=== PATIENT | male | born 1945 | race Caucasian/White ===

== ENCOUNTER 2018-01-26 09:10 | Inpatient (IN) | payer MEDICARE ==
[2018-01-26 09:40] LABS: #Basophils 0.1 thou/uL (0.0-0.2); #Lymphocytes 1.3 thou/uL (1.20-3.40); #Monocytes 0.4 thou/uL (0.11-0.59); %Basophils 0.6 % (0.0-1.0); %Eosinophils 0.3 % (0.0-10.0); %Lymphocytes 13.1 % (21.0-51.0); %Monocytes 4.1 % (0.0-10.0); Hemoglobin 13.6 g/dL (14.0-18.0); Mean Corpuscular HGB CONC 33.3 g/dL (32.0-36.0); Mean Platelet Volume 7.1 fL (7.4-10.4); Platelet Count 283 thou/uL (130-400); RBC Distribution Width 12.3 % (11.5-14.5); Red Blood Cell (RBC) Count 4.71 mill/uL (4.70-6.10); White Blood Cell (WBC) Count 9.8 thou/uL (4.8-10.8)
[2018-01-26] MEDS ORDERED: Ondansetron HCl/PF 4 MG/2 ML Vial ONE (09:40)
[2018-01-26 09:56] LABS: Bilirubin Negative (Negative); Blood, Urine Negative (Negative); Clarity CLEAR (Clear); Glucose, Urine (Dipstick) Negative (Negative); Leukocyte Negative (Negative); Nitrite Negative (Negative); Protein, Urine (Dipstick) Negative (Neg-Trace); Specific Gravity, Urine 1.023 (1.002-1.036); Urobilinogen 0.2 mg/dL (0.2-1.0); pH, Urine 5.5 (5.0-9.0)
[2018-01-26 10:05] LABS: ALT (SGPT) 12 U/L (8-55); AST (SGOT) 20 U/L (5-34); Albumin 4.1 g/dL (3.4-4.8); Alkaline Phosphatase 79 U/L (40-150); Anion Gap 14 mmol/L (10-20); BUN (Urea Nitrogen) 12 mg/dL (8.4-25.7); Bilirubin, Total 0.5 mg/dL (0.2-1.2); Calc. Creatinine Clearance 0 mL/min (70-130); Carbon Dioxide 24 mmol/L (23-31); Chloride 104 mmol/L (98-107); Estimated GFR-MDRD 82; Globulin 3.5 g/dL (2.4-3.5); Glucose 114 mg/dL (83-110); Lipase 32 U/L (8-78); Potassium 4.3 mmol/L (3.5-5.1); Protein, Total 7.6 g/dL (5.8-8.1); Sodium 138 mmol/L (136-145)
[2018-01-26 10:06] LABS: Troponin I Less than 0.010 ng/mL (< 0.028)
--- NOTE | 2018-01-26 11:23 | CT ---
CT ABDOMEN AND PELVIS WITH IV CONTRAST: Date: 01/26/18 HISTORY: Right lower quadrant abdominal pain and vomiting. FINDINGS: The lung bases are unremarkable. The liver, spleen, pancreas, adrenal glands, and left kidney are nor mal. There is a cortical cyst arising from the right kidney. No calcified gallstones are seen. No free air or lymphadenopathy is noted. There is a small amount of free fluid in the pelvis. The pro state is enlarged. There are prominent, but nondilated, loops of small bowel in the left hemiabdomen with mild surrounding inflammatory changes. There is fecal material in the colon. A small hiatal viviane ia is present. There is mid colonic diverticulosis. There are vascular calcifications without evidence of aneurysmal dilatation of the abdominal aorta. T here are degenerative changes in the spine. IMPRESSION: 1. Findings are suspicious for enteritis. Early or developing small bowel obstruction cannot be excl uded. 2. Right renal cyst. 3. Small amount of free fluid in the pelvis. 4. Small hiatal hernia. POS: [facility]
[2018-01-26] MEDS ORDERED: Benzocaine 20% Spray 60 ML CAN ONE (11:51)
[2018-01-26] MEDS ORDERED: ISOVUE-370 76%-LOCM 1 ML ONE (13:02)
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
[2018-01-26] MEDS ORDERED: Dextrose 5 % And 0.9 % NaCl 1,000 ML IV SCH (15:15)
[2018-01-26] MEDS ORDERED: Artificial Tears 18 DROP/0.9 ML EA EYE PRN (15:18)
[2018-01-26] MEDS ORDERED: Acetaminophen 650 MG Suppository PR PRN (15:18)
[2018-01-26] MEDS ORDERED: Eucerin (Mineral Oil/Petrolatum,White) 30 gm Jar TOP PRN (15:18)
[2018-01-26] MEDS ORDERED: Sodium Chloride 0.65% Nasal 44 ML BOT EA NARE PRN (15:18)
[2018-01-26] MEDS ORDERED: Bisacodyl 10 MG SUPP PR PRN (15:18)
[2018-01-26] MEDS ORDERED: Labetalol HCl 100 MG/20 ML VIAL SLOW IVP PRN (15:18)
[2018-01-26] MEDS ORDERED: Chloraseptic Spray 180 ml Bottle PO PRN (15:18)
[2018-01-26] MEDS: Ondansetron HCl/PF 4 MG/2 ML Vial IVP PRN (15:41)
[2018-01-26] MEDS: hydrALAZINE 20 MG/ML VIAL SLOW IVP PRN (15:42)
[2018-01-26] MEDS: Sodium Chloride 0.9% 1,000 ML IV SCH (15:45)
[2018-01-26] MEDS: metroNIDAZOLE 500 MG in Premix Bag 1 BAG IVPB SCH (17:07)
[2018-01-26] MEDS ORDERED: Communication Order-Pharmacy FS SCH (17:45)
[2018-01-26] MEDS ORDERED: fentaNYL Citrate/PF 2,000 MCG in Sodium Chloride 0.9% 60 ML IV PRN (17:45)
[2018-01-26] MEDS ORDERED: Ondansetron HCl/PF 4 MG/2 ML Vial IVP PRN (17:45)
[2018-01-26] MEDS ORDERED: diphenhydrAMINE 50 MG/ML VIAL IM PRN (17:45)
[2018-01-26] MEDS ORDERED: Promethazine HCl 25 MG/ML VIAL IM PRN (17:45)
[2018-01-26] MEDS ORDERED: diphenhydrAMINE 25 MG CAP PO PRN (17:45)
[2018-01-26] MEDS ORDERED: Naloxone HCl 0.4 mg/ml Vial IV PRN (17:45)
[2018-01-26] MEDS ORDERED: diphenhydrAMINE 50 MG/ML VIAL IVP PRN (17:45)
[2018-01-26] MEDS ORDERED: Zolpidem Tartrate 5 MG TAB PO PRN (17:45)
[2018-01-26] MEDS: Pantoprazole 40 MG VIAL IVP SCH (20:12)
[2018-01-27] MEDS: Sodium Chloride 0.9% 1,000 ML IV SCH ×3 (01:50→20:40)
[2018-01-27] MEDS: metroNIDAZOLE 500 MG in Premix Bag 1 BAG IVPB SCH (02:06)
[2018-01-27 05:07] LABS: Lactic Acid 8.5 mmol/L (0.5-2.2)
[2018-01-27 05:08] LABS: Anion Gap 23 mmol/L (10-20); BUN (Urea Nitrogen) 22 mg/dL (8.4-25.7); Calc. Creatinine Clearance 21 mL/min (70-130); Calcium 8.3 mg/dL (7.8-10.44); Carbon Dioxide 13 mmol/L (23-31); Chloride 105 mmol/L (98-107); Estimated GFR-MDRD 26; Glucose 275 mg/dL (83-110); Magnesium 1.9 mg/dL (1.6-2.6); Phosphorus 6.4 mg/dL (2.3-4.7); Potassium 5.4 mmol/L (3.5-5.1); Sodium 136 mmol/L (136-145)
[2018-01-27 05:24] LABS: Band 11 % (5-11); Eosinophils 1 % (0-10); Hemoglobin 18.3 g/dL (14.0-18.0); Lymphocytes 5 % (21-51); MDiff Complete? YES; Mean Corpuscular HGB CONC 31.9 g/dL (32.0-36.0); Mean Corpuscular Hemoglobin 28.5 pg (27.0-31.0); Mean Corpuscular Volume 89.2 fL (78.0-98.0); Mean Platelet Volume 7.8 fL (7.4-10.4); Metamyelocyte 1 % (0-0); Monocytes 7 % (0-10); Neutrophil 75 % (42-75); PLT Morphology Comment Appears Increased; Platelet Count 444 thou/uL (130-400); RBC Morphology Normal; Red Blood Cell (RBC) Count 6.43 mill/uL (4.70-6.10); White Blood Cell (WBC) Count 28.8 thou/uL (4.8-10.8)
--- NOTE | 2018-01-27 05:41 | PDOC.EVN ---
Event Note - Event Note Event Note: called initially for abnormal lab results pt with "hardness" to the abdomen and c/o feeling uncomfortable issues with hypotension entire evening UOP 100cc with 380cc on bladder scan residual exam: dec bowel sounds no tenderness to palpation but pt on fentanyl IV tense abdominal wall to palpation labs reviewed: new leukocytosis, MAVERICK, elev lactic acid plan: concern for sepsis escalate abx to piptaz + vanc (d'c levaquin, metronidazole) repeat XR abd stat blood cultures, urine cultures NGT c/s nephrology will need repeat lactic acid
[2018-01-27] MEDS: Piperacillin/Tazobactam 2.25 GM in Sodium Chloride 0.9% 100 ML IVPB SCH ×3 (06:35→18:13)
--- NOTE | 2018-01-27 07:54 | RAD ---
SUPINE ABDOMEN 1 VIEW: HISTORY: A 72-year-old male with a history of abdominal pain. FINDINGS: There appears to be at least 1 air-filled loop of small bowel as well as some increased opacity in th e left mid lateral abdomen which could represent minimally dilated fluid-filled loops of bowel. Very little colon gas is seen. Findings are certainly concerning for a potential high-grade partial smal l bowel obstruction. NG tube tip is in the stomach with the side hole at the GE junction level. Thi s should probably be advanced at least 6-7 cm for more optimal positioning within the stomach. IMPRESSION: Evidence for persistent small bowel obstruction with very little colon gas. NG Tube tip is in the st omach with the side hole at the GE junction region and should probably be advanced to more completely enter the stomach. POS: SHERICE
[2018-01-27] MEDS ORDERED: Vancomycin HCl 1.25 GM in Sodium Chloride 0.9% 250 ML 250 ML IVPB SCH (08:00)
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
[2018-01-27] MEDS ORDERED: Albumin 5% 500 ML ONE ×2 (10:03→11:11)
[2018-01-27] MEDS ORDERED: Phenylephrine HCL 10 MG/ML VIAL ONE (10:03)
[2018-01-27] MEDS ORDERED: Fentanyl 100 MCG/2 ML VIAL ONE ×2 (10:03→12:35)
[2018-01-27] MEDS ORDERED: Ketamine 50 MG/ML VIAL ONE (10:14)
[2018-01-27] MEDS ORDERED: Midazolam HCl 2 mg/2 ml Vial ONE (10:23)
[2018-01-27] MEDS ORDERED: Insulin Regular 300 UNITS/3 ML VIAL ONE (10:35)
[2018-01-27] MEDS ORDERED: Sodium Bicarb 50 MEQ/50 ML Abboject 8.4% SYRINGE ONE (10:54)
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
[2018-01-27] MEDS ORDERED: SUGAMMADEX SODIUM 500 MG/5 ML VIAL ONE (11:51)
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
--- NOTE | 2018-01-27 12:33 | OP ---
DATE OF PROCEDURE: 01/27/2018 PREOPERATIVE DIAGNOSES: Small-bowel obstruction and ischemic volvulus midgut. POSTOPERATIVE DIAGNOSES: Small-bowel obstruction and ischemic volvulus midgut. PROCEDURE: Exploratory laparotomy, lysis of adhesion and untwist of volvulus. SURGEON: Reynaldo Russ M.D. ANESTHESIA: General. ESTIMATED BLOOD LOSS: Minimal. COMPLICATIONS: None. SPECIMEN: None. FINDINGS: The mid small bowel appears with end-ischemia type changes on entrance into the abdominal cavity. Upon untwisting and lysing the adhesion causing twist, the intestine did improve to the poin t where none was resected. TECHNIQUE: The patient was taken to the operating room supine in the operating table. After general anesthetic was obtained, Dr. Andres placed Kimble with scope guidance. His abdomen were shaved, prep ped, and draped in a sterile fashion. Midline incision is made. Cautery dissected down into the abd ominal cavity. Some posterior abdominal wall adhesions were taken down. The small bowel appears isc hemic. It is able to be eviscerated. There was a twist caused by a single adhesion that was cut unt wisting the small intestine, 10-15 minutes, the small bowel appeared to be viable. There were couple patchy areas of purplish change; however, most of the near end-ischemia type changes had resolved. The small bowel was placed back into the abdominal cavity in its proper orientation. The abdomen was irrigated and suctioned out. Seprafilm was placed. The midline fascia closed using PDS from the to p and the bottom and tied in the middle. Subcutaneous tissues are irrigated and the skin was closed using betty. The patient is taken to the recovery room in stable condition. All instrument counts , needle counts, lap counts are correct.
[2018-01-27 14:04] LABS: Lactic Acid 2.1 mmol/L (0.5-2.2)
[2018-01-27] MEDS ORDERED: Succinylcholine Chloride 20 MG/ML 10 ml SYRINGE FS ONE (14:44)
[2018-01-27] MEDS ORDERED: Glycopyrrolate 0.2 MG/ML 5 ML SYRINGE ONE (14:44)
[2018-01-27] MEDS ORDERED: Lidocaine 1% PF 5 ML VIAL ONE (14:44)
[2018-01-27] MEDS ORDERED: PROPOFOL 200 MG/20 ML VIAL ONE (14:44)
[2018-01-27] MEDS: Acetaminophen 1,000 MG in Premix Bag 1 BAG IVPB PRN (16:01)
--- NOTE | 2018-01-27 21:03 | PDOC.PN ---
- Subjective Encounter Start Date: 01/27/18 Encounter Start Time: 08:45 Patient seen and examined for Sepsis/ Bowel obstruction. Events noted. Abd pain improving. Some Nausea. - Objective Resuscitation Status: Resuscitation Status FULL:Full Resuscitation MAR Reviewed: Yes Vital Signs & Weight: Vital Signs (12 hours) Temp Pulse Resp BP Pulse Ox 01/27/18 19:29 97.9 F 104 H 16 149/66 H 100 01/27/18 16:31 98.3 F 109 H 20 154/69 H 95 Weight Admit Weight 125 lb 2 oz Weight 128 lb 9.6 oz I&O: 01/26/18 01/27/18 01/28/18 06:59 06:59 06:59 Intake Total 300 1950 Output Total 450 525 Balance -150 1425 Result Diagrams: 01/27/18 04:56 01/27/18 04:09 Additional Labs: Accuchecks 01/27/18 11:54 POC Glucose 108 Laboratory Tests 01/27/18 04:09 Lactic Acid 8.5 H* Radiology Reviewed by me: Yes (CT abd - Enteritis) EKG Reviewed by me: Yes (Tele SR) Phys Exam - Physical Examination Constitutional: NAD Respiratory: no wheezing, no rales, no rhonchi, clear to auscultation bilateral Cardiovascular: RRR, no rub No heaves/pulsations Gastrointestinal: soft, positive bowel sounds Mild gen tenderness, Some voluntary guarding Musculoskeletal: no edema Neurological: non-focal, moves all 4 limbs Dx/Plan - Plan DVT proph w/SCDs IMPRESSION: 1. Severe Sepsis with acute organ dysfunction due to SBO/Enteritis 2. MAVERICK with Lactic acidosis/Hyperkalemia 3. Unable to place starkey 4. Daily Alcohol use 5. Diverticulosis 6. Other issues per previous notes PLAN: Cont Atbx/IVF Surgery today Consult Urology AM labs Repeat lactic acid later today Add Multivitamins Close monitoring Review of Systems - Review of Systems Respiratory: negative: Cough, Dry, Shortness of Breath, Hemoptysis, SOB with Excertion, Pleuritic Pain, Sputum, Wheezing Cardiovascular: negative: chest pain, palpitations, orthopnea, paroxysmal nocturnal dyspnea, edema, light headedness, other - Medications/Allergies Allergies/Adverse Reactions: Allergies Allergy/AdvReac Type Severity Reaction Status Date / Time No Known Allergies Allergy Verified 01/26/18 15:22 Medications: Current Medications Artificial Tears (Tears Naturale) 0 drop EA EYE PRN PRN PRN Reason: Dry Eyes Diphenhydramine HCl (Benadryl) 25 mg IVP Q3H PRN PRN Reason: Itching Diphenhydramine HCl (Benadryl) 25 mg PO Q3H PRN PRN Reason: Itching Diphenhydramine HCl (Benadryl) 25 mg IM Q3H PRN PRN Reason: Itching Hydralazine HCl (Apresoline) 10 mg SLOW IVP Q4H PRN PRN Reason: Systolic BP > 180 Last Admin: 01/26/18 15:42 Dose: 10 mg Piperacillin Sod/Tazobactam (Sod 2.25 gm/ Sodium Chloride) 100 mls @ 200 mls/ hr IVPB Q6HR [facility] Last Admin: 01/27/18 18:13 Dose: 100 mls Acetaminophen 1,000 mg/ Device 100 mls @ 400 mls/hr IVPB Q6H PRN PRN Reason: Fever/Mild Pain Stop: 01/28/18 14:58 Last Admin: 01/27/18 16:01 Dose: 100 mls Dextrose/Sodium Chloride (D5 1/2 Ns) 1,000 mls @ 125 mls/hr IV .Q8H [facility] Labetalol HCl (Normodyne) 20 mg SLOW IVP Q4H PRN PRN Reason: Systolic BP > 180 Miscellaneous Medication (Pharmacy To Dose) 0 each IVPB PRN PRN PRN Reason: RENALLY Pharmacy to Dose Multivitamins (Mvi, Adult) 10 ml IV DAILY [facility] Naloxone HCl (Narcan) 0.2 mg IV Q5MIN PRN PRN Reason: Opiate Reversal Ondansetron HCl (Zofran) 4 mg IVP Q6H PRN PRN Reason: Nausea/Vomiting Last Admin: 01/26/18 15:41 Dose: 4 mg Ondansetron HCl (Zofran) 4 mg IVP Q6H PRN PRN Reason: Nausea/Vomiting Pantoprazole Sodium (Protonix) 40 mg IVP 2100 [facility] Last Admin: 01/26/18 20:12 Dose: 40 mg Phenol (Chloraseptic [place] 180 Ml Bot) 0 ml PO PRN PRN PRN Reason: Sore Throat Promethazine HCl (Phenergan) 12.5 mg IM Q4H PRN PRN Reason: Nausea/Vomiting Sodium Chloride ([place] Nasal [place] 0.65%) 0 ml EA NARE QIDPRN PRN PRN Reason: Nasal Congestion Sodium Chloride (Flush - Normal Saline) 10 ml IVF Q12HR [facility] Last Admin: 01/27/18 15:06 Dose: Not Given Sodium Chloride (Flush - Normal Saline) 10 ml IVF PRN PRN PRN Reason: Saline Flush Zolpidem Tartrate (Ambien) 5 mg PO HSPRN PRN PRN Reason: Insomnia
[2018-01-27] MEDS: Dextrose 5 %-0.45 % NaCl 1,000 ML IV SCH (21:27)
[2018-01-27] MEDS: Pantoprazole 40 MG VIAL IVP SCH (21:27)
[2018-01-27 22:08] LABS: Anion Gap 13 mmol/L (10-20); BUN (Urea Nitrogen) 27 mg/dL (8.4-25.7); Calc. Creatinine Clearance 32 mL/min (70-130); Calcium 7.5 mg/dL (7.8-10.44); Carbon Dioxide 21 mmol/L (23-31); Chloride 112 mmol/L (98-107); Estimated GFR-MDRD 40; Glucose 96 mg/dL (83-110); Potassium 4.9 mmol/L (3.5-5.1); Sodium 141 mmol/L (136-145)
[2018-01-27 22:32] LABS: Creatinine, Urine 102.2 mg/dL (63-166)
[2018-01-28] MEDS: Piperacillin/Tazobactam 2.25 GM in Sodium Chloride 0.9% 100 ML IVPB SCH ×4 (00:27→17:54)
[2018-01-28 04:47] LABS: Lactic Acid 1.1 mmol/L (0.5-2.2)
[2018-01-28 05:01] LABS: Magnesium 1.7 mg/dL (1.6-2.6)
[2018-01-28 05:06] LABS: ALT (SGPT) 17 U/L (8-55); AST (SGOT) 37 U/L (5-34); Albumin 3.1 g/dL (3.4-4.8); Alkaline Phosphatase 35 U/L (40-150); Anion Gap 13 mmol/L (10-20); BUN (Urea Nitrogen) 24 mg/dL (8.4-25.7); Bilirubin, Total 0.5 mg/dL (0.2-1.2); Calc. Creatinine Clearance 42 mL/min (70-130); Calcium 7.8 mg/dL (7.8-10.44); Carbon Dioxide 19 mmol/L (23-31); Chloride 111 mmol/L (98-107); Estimated GFR-MDRD 55; Globulin 2.2 g/dL (2.4-3.5); Glucose 117 mg/dL (83-110); Phosphorus 2.3 mg/dL (2.3-4.7); Potassium 4.5 mmol/L (3.5-5.1); Protein, Total 5.3 g/dL (5.8-8.1); Sodium 138 mmol/L (136-145)
[2018-01-28 05:16] LABS: Band 3 % (5-11); Hypochromia SLIGHT = 6-15 cells (100X) (0-5/hpf); Lymphocytes 6 % (21-51); MDiff Complete? YES; Mean Platelet Volume 8.4 fL (7.4-10.4); Monocytes 3 % (0-10); Neutrophil 88 % (42-75); PLT Morphology Comment Appears Adequate; Platelet Count 239 thou/uL (130-400); RBC Distribution Width 12.7 % (11.5-14.5); Red Blood Cell (RBC) Count 4.49 mill/uL (4.70-6.10); White Blood Cell (WBC) Count 25.1 thou/uL (4.8-10.8)
[2018-01-28] MEDS: Dextrose 5 %-0.45 % NaCl 1,000 ML IV SCH (05:59)
[2018-01-28] MEDS ORDERED: Multivit, Adult Inj 10 ML VIAL IV SCH (09:00)
[2018-01-28] MEDS ORDERED: Vancomycin HCl 750 MG in Sodium Chloride 0.9% 250 ML 250 ML IVPB SCH (09:00)
--- NOTE | 2018-01-28 09:33 | PRG ---
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 His pain is better. He states no nausea. OBJECTIVE: He is afebrile. Vital signs are stable. NG output is low. His abdomen is soft, nondist ended. Midline wound is healing without evidence of infection. LABORATORY DATA: White blood cell count is 25, hemoglobin 13, creatinine is down to 1.28. ASSESSMENT: Postop day #1, exploratory laparotomy, lysis of adhesion, reduction midgut volvulus. PLAN: I suspect his white blood cell count is going to trend down over the next few days, remove the NG tube. We will allow ice chips only today, transfer to floor, start ambulating.
[2018-01-28] MEDS: DEXTROSE IV SCH (09:36)
[2018-01-28] MEDS: MULTIVITAMINS IV SCH (09:36)
[2018-01-28] MEDS: WATER IV SCH (09:36)
--- NOTE | 2018-01-28 12:17 | PRG ---
DATE OF SERVICE: 01/28/2018 SUBJECTIVE: Mr. Hernandez is a 72-year-old white male who was seen for an acute kidney injury. At that time, we felt that this was a hemodynamically mediated renal dysfunction secondary to a possible thi rd spacing from sepsis. In the interim, the patient has undergone an exploratory laparotomy with Dr. Russ. There was a small-bowel obstruction, ischemic volvulus midgut. Lysis of adhesions and twi sting of the volvulus was done. His renal function this morning is now normal. No new complaints. No chest pain. OBJECTIVE: VITAL SIGNS: Blood pressure 175/91, heart rate 102, respiratory rate 18, temperature 98.6, pulse ox 100%. GENERAL: Noted to be awake, alert, comfortable, not in overt distress. SKIN: Adequate turgor. HEENT: He has pinkish conjunctivae, anicteric sclerae. NECK: No neck mass, no carotid bruits, no JVD. CHEST: No deformities. LUNGS: Clear breath sounds. No wheezing, no crackles. HEART: Normal sinus rhythm. No murmur, no gallops, no rubs. ABDOMEN: Globular, soft, nontender, no masses. EXTREMITIES: No edema, no deformities. MEDICATIONS: Medications of 01/28/2018 reviewed. LABORATORY DATA: Laboratories of 01/28/2018, white count 25.1, hemoglobin 13. Sodium 138, potassium 4.5, chloride 111, carbon dioxide 19, BUN 24, creatinine 1.28. Glucose 117, calcium 7.8, phosphorus 2.3, AST 37, ALT 17. Blood culture, 01/27/2018, no growth to date. ASSESSMENT AND PLAN: Acute kidney injury. I think this is a hemodynamically mediated dysfunction secondary to third spaci ng. Much improved after his exploratory laparotomy and after decompression of the abdomen. He had a volvulus, which was untwisted. He is currently on empiric antibiotics. Due to the improving renal function, we may consider giving a maximum dose of his Zosyn. Overall, I agree with current management.
[2018-01-28] MEDS: hydrALAZINE 20 MG/ML VIAL SLOW IVP PRN (12:28)
[2018-01-28] MEDS: Acetaminophen 1,000 MG in Premix Bag 1 BAG IVPB PRN (12:30)
[2018-01-28] MEDS: D5 1/2 NS w/20 mEq KCL 1,000 ML IV SCH (12:58)
--- NOTE | 2018-01-28 13:19 | PRG ---
DATE OF SERVICE: 01/28/2018 SUBJECTIVE: Michelle Hernandez this morning is awake, alert, responsive, less abdominal pain. OBJECTIVE: VITAL SIGNS: Pulse 102, temperature 98, sats 100%, respiration rate 18, blood pressure is 175/91. GENERAL: Denies any nausea or vomiting CHEST: Decreased breath sounds. No wheezing. CARDIAC: Normal S1, S2, no gallops. ABDOMEN: Soft. LABORATORY DATA: Creatinine is improved to 1.28. White count is still elevated at 25,000, H&H 13 an d 39. IMPRESSION: Abdominal sepsis, small-bowel obstruction, leukocytosis. PLAN: Continue Zosyn. Supportive care. We will follow while in the MICU.
--- NOTE | 2018-01-28 13:43 | PDOC.PN ---
- Subjective Encounter Start Date: 01/28/18 Encounter Start Time: 12:00 Subjective: no nausea, feels better -: no flatus yet, but has increased bowel sounds - Objective Resuscitation Status: Resuscitation Status FULL:Full Resuscitation MAR Reviewed: Yes Vital Signs & Weight: Vital Signs (12 hours) Temp Pulse Resp BP BP Pulse Ox 01/28/18 12:44 98.1 F 102 H 16 16 L 01/28/18 12:28 102 H 185/103 H 01/28/18 12:23 98.1 F 105 H 16 193/95 H 97 01/28/18 11:06 99.6 F 103 H 18 176/91 H 100 01/28/18 08:00 98.6 F 102 H 18 99 01/28/18 07:33 98.6 F 102 H 18 175/91 H 100 01/28/18 04:00 99.6 F 101 H 17 158/88 H 100 Weight Admit Weight 125 lb 2 oz Weight 134 lb 14.4 oz I&O: 01/27/18 01/28/18 01/29/18 06:59 06:59 06:59 Intake Total 300 3411 Output Total 450 1125 225 Balance -150 2286 -225 Result Diagrams: 01/28/18 03:43 01/28/18 03:43 Phys Exam - Physical Examination HEENT: PERRLA, moist MMs Neck: no JVD, supple Respiratory: no wheezing, no rales Cardiovascular: RRR, no significant murmur Gastrointestinal: soft, no distention Musculoskeletal: no edema, pulses present Neurological: non-focal, moves all 4 limbs Psychiatric: normal affect, A&O x 3 Dx/Plan (1) SBO (small bowel obstruction) Code(s): K56.609 - UNSP INTESTNL OBST, UNSP TO PARTIAL VERSUS COMPLETE OBST Status: Acute Comment: s/p exploratory laparotomy, 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 (2) MAVERICK (acute kidney injury) Code(s): N17.9 - ACUTE KIDNEY FAILURE, UNSPECIFIED Status: Resolved (3) Metabolic acidosis Code(s): E87.2 - ACIDOSIS Status: Acute (4) Sepsis Code(s): A41.9 - SEPSIS, UNSPECIFIED ORGANISM Status: Suspected Qualifiers: Sepsis type: sepsis due to unspecified organism Qualified Code(s): A41.9 - Sepsis, unspecified organism - Plan is on d51/2NS -: zosyn -: recovering well post op -: d/w , will have ice chips, to amb as tolerated -: hemostable, may tx to med surg floor * . Review of Systems - Medications/Allergies Allergies/Adverse Reactions: Allergies Allergy/AdvReac Type Severity Reaction Status Date / Time No Known Allergies Allergy Verified 01/26/18 15:22 Medications: Current Medications Artificial Tears (Tears Naturale) 0 drop EA EYE PRN PRN PRN Reason: Dry Eyes Diphenhydramine HCl (Benadryl) 25 mg IVP Q3H PRN PRN Reason: Itching Diphenhydramine HCl (Benadryl) 25 mg PO Q3H PRN PRN Reason: Itching Diphenhydramine HCl (Benadryl) 25 mg IM Q3H PRN PRN Reason: Itching Hydralazine HCl (Apresoline) 10 mg SLOW IVP Q4H PRN PRN Reason: Systolic BP > 180 Last Admin: 01/28/18 12:28 Dose: 10 mg Piperacillin Sod/Tazobactam (Sod 2.25 gm/ Sodium Chloride) 100 mls @ 200 mls/ hr IVPB Q6HR [facility] Last Admin: 01/28/18 12:58 Dose: 100 mls Acetaminophen 1,000 mg/ Device 100 mls @ 400 mls/hr IVPB Q6H PRN PRN Reason: Fever/Mild Pain Stop: 01/28/18 14:58 Last Admin: 01/28/18 12:30 Dose: 100 mls Multivitamins 10 ml/ Dextrose/ (Water) 510 mls @ 63.75 mls/hr IV DAILY [facility] Last Admin: 01/28/18 09:36 Dose: 510 mls Potassium Chloride/Dextrose/Sod Cl (D5 1/2 Ns W/20 Meq Kcl) 1,000 mls @ 75 mls/ hr IV .[id number] [facility] Last Admin: 01/28/18 12:58 Dose: 1,000 mls Labetalol HCl (Normodyne) 20 mg SLOW IVP Q4H PRN PRN Reason: Systolic BP > 180 Miscellaneous Medication (Pharmacy To Dose) 0 each IVPB PRN PRN PRN Reason: RENALLY Pharmacy to Dose Naloxone HCl (Narcan) 0.2 mg IV Q5MIN PRN PRN Reason: Opiate Reversal Ondansetron HCl (Zofran) 4 mg IVP Q6H PRN PRN Reason: Nausea/Vomiting Last Admin: 01/26/18 15:41 Dose: 4 mg Ondansetron HCl (Zofran) 4 mg IVP Q6H PRN PRN Reason: Nausea/Vomiting Pantoprazole Sodium (Protonix) 40 mg IVP 2100 [facility] Last Admin: 01/27/18 21:27 Dose: 40 mg Phenol (Chloraseptic [place] 180 Ml Bot) 0 ml PO PRN PRN PRN Reason: Sore Throat Promethazine HCl (Phenergan) 12.5 mg IM Q4H PRN PRN Reason: Nausea/Vomiting Sodium Chloride ([place] Nasal [place] 0.65%) 0 ml EA NARE QIDPRN PRN PRN Reason: Nasal Congestion Sodium Chloride (Flush - Normal Saline) 10 ml IVF Q12HR [facility] Last Admin: 01/28/18 09:36 Dose: Not Given Sodium Chloride (Flush - Normal Saline) 10 ml IVF PRN PRN PRN Reason: Saline Flush Zolpidem Tartrate (Ambien) 5 mg PO HSPRN PRN PRN Reason: Insomnia
--- NOTE | 2018-01-28 16:37 | EKG ---
Test Reason : ABDOMINAL PAIN Blood Pressure : / mmHG Vent. Rate : 081 BPM Atrial Rate : 081 BPM P-R Int : 252 ms QRS Dur : 084 ms QT Int : 364 ms P-R-T Axes : 061 049 049 degrees QTc Int : 422 ms Sinus rhythm with 1st degree A-V block Otherwise normal ECG Confirmed by MERLIN RIVERA ([id number]), department editor SKYLER MARLOW ([id number] on 01/28/2018 4:37:21 PM Referred By: Confirmed By:MERLIN RIVERA
[2018-01-28] MEDS ORDERED: Acetaminophen 1,000 MG in Premix Bag 1 BAG IVPB PRN (17:31)
[2018-01-28] MEDS ORDERED: Morphine 4 MG/ML VIAL SLOW IVP PRN (17:32)
[2018-01-28] MEDS: Pantoprazole 40 MG VIAL IVP SCH (21:04)
[2018-01-28] MEDS ORDERED: Piperacillin/Tazobactam 2.25 GM in Sodium Chloride 0.9% 100 ML IVPB SCH (23:59)
[2018-01-29] MEDS: Piperacillin/Tazobactam 3.375 GM in Sodium Chloride 0.9% 100 ML IVPB SCH ×5 (00:09→23:34)
[2018-01-29] MEDS: D5 1/2 NS w/20 mEq KCL 1,000 ML IV SCH (01:14)
[2018-01-29 06:04] LABS: Anion Gap 11 mmol/L (10-20); BUN (Urea Nitrogen) 14 mg/dL (8.4-25.7); Calc. Creatinine Clearance 62 mL/min (70-130); Calcium 8.3 mg/dL (7.8-10.44); Carbon Dioxide 23 mmol/L (23-31); Chloride 107 mmol/L (98-107); Estimated GFR-MDRD 81; Glucose 114 mg/dL (83-110); Potassium 3.7 mmol/L (3.5-5.1); Sodium 137 mmol/L (136-145)
[2018-01-29 06:08] LABS: Band 3 % (5-11); Hemoglobin 12.5 g/dL (14.0-18.0); Lymphocytes 9 % (21-51); MDiff Complete? YES; Mean Corpuscular HGB CONC 33.3 g/dL (32.0-36.0); Mean Corpuscular Volume 87.1 fL (78.0-98.0); Mean Platelet Volume 7.8 fL (7.4-10.4); Monocytes 5 % (0-10); Neutrophil 83 % (42-75); PLT Morphology Comment Appears Adequate; Platelet Count 230 thou/uL (130-400); RBC Distribution Width 12.5 % (11.5-14.5); RBC Morphology Normal; Red Blood Cell (RBC) Count 4.32 mill/uL (4.70-6.10); White Blood Cell (WBC) Count 18.8 thou/uL (4.8-10.8)
[2018-01-29] MEDS ORDERED: D5 1/2 NS w/20 mEq KCL 1,000 ML IV SCH (08:09)
[2018-01-29] MEDS: WATER IV SCH (08:24)
[2018-01-29] MEDS: DEXTROSE IV SCH (08:24)
[2018-01-29] MEDS: MULTIVITAMINS IV SCH (08:24)
--- NOTE | 2018-01-29 08:57 | PRG ---
DATE OF SERVICE: 01/29/2018 SUBJECTIVE: Mr. Hernandez is doing well today. He denies pain, denies nausea with the NG tube out. OBJECTIVE: VITAL SIGNS: His pulse is 98, respirations 16, blood pressure 172/92. He is afebrile. GENITOURINARY: Urine output is 550 overnight for the last 12-hour shift. ABDOMEN: Soft, minimally tender, but nondistended. He does have good bowel sounds. Midline wound i s healing well. LABORATORY DATA: White blood cell count is still elevated at 18, but his bandemia has resolved. Cre atinine is normal at 0.91, potassium 3.7. ASSESSMENT: Postoperative day #02, exploratory laparotomy, lysis of adhesion and reduction of volvul us. PLAN: We will allow clear liquids. Discontinue Kim[place]. If he has increasing pain or failure of whit e count to completely resolve, he may ultimately need reexploration; however, he continues to clinica lly improve.
--- NOTE | 2018-01-29 11:34 | PRG ---
DATE OF SERVICE: 01/29/2018 SUBJECTIVE: Mr. Hernandez this morning he is doing better status post lap. OBJECTIVE: VITAL SIGNS: Sats are 98%, pulse 100, temperature 98, and blood pressure 170/90. GENERAL: Denies difficulty breathing. CHEST: Chest reveals decreased breath sounds, no wheezing. CARDIAC: Normal S1 and S2, no gallops. LABORATORY DATA: Electrolytes are normal. White count 18,000. Status post laparoscopic, lysis of adhesions, reduction of volvulus. PLAN: Pulmonary gan, he is stable. We will follow at a distance. Please call if needed.
[2018-01-29] MEDS: hydrALAZINE 20 MG/ML VIAL SLOW IVP PRN (12:43)
--- NOTE | 2018-01-29 14:49 | PDOC.PN ---
- Subjective Encounter Start Date: 01/29/18 Encounter Start Time: 12:00 Subjective: no nausea or vomiting -: is planning to walk with staff shortly -: tolerating ice chips, no flatus yet - Objective Resuscitation Status: Resuscitation Status FULL:Full Resuscitation MAR Reviewed: Yes Vital Signs & Weight: Vital Signs (12 hours) Temp Pulse Resp BP BP Pulse Ox 01/29/18 13:52 109 H 162/89 H 01/29/18 12:43 108 H 182/93 H 01/29/18 12:00 97.9 F 108 H 16 182/93 H 99 01/29/18 10:10 102 H 177/94 H 01/29/18 08:00 98.4 F 100 16 170/90 H 96 01/29/18 07:49 98.7 F 98 16 01/29/18 04:00 98.7 F 98 16 172/92 H 96 Weight Admit Weight 125 lb 2 oz Weight 132 lb 9 oz I&O: 01/28/18 01/29/18 01/30/18 06:59 06:59 06:59 Intake Total 3411 1080 Output Total 1125 550 150 Balance 2286 530 -150 Result Diagrams: 01/29/18 05:14 01/29/18 05:14 Phys Exam - Physical Examination HEENT: PERRLA, moist MMs Neck: no JVD, supple Respiratory: no wheezing, no rales Cardiovascular: RRR, no significant murmur Gastrointestinal: soft, no distention Musculoskeletal: no edema, pulses present Neurological: non-focal, moves all 4 limbs Psychiatric: normal affect, A&O x 3 Dx/Plan (1) SBO (small bowel obstruction) Code(s): K56.609 - UNSP INTESTNL OBST, UNSP TO PARTIAL VERSUS COMPLETE OBST Status: Acute Comment: s/p exploratory laparotomy, 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 (2) MAVERICK (acute kidney injury) Code(s): N17.9 - ACUTE KIDNEY FAILURE, UNSPECIFIED Status: Resolved (3) Metabolic acidosis Code(s): E87.2 - ACIDOSIS Status: Acute (4) Sepsis Code(s): A41.9 - SEPSIS, UNSPECIFIED ORGANISM Status: Suspected Qualifiers: Sepsis type: sepsis due to unspecified organism Qualified Code(s): A41.9 - Sepsis, unspecified organism - Plan wbc is trending down as expected post op, is 18k now -: will be started on clear liq diet today -: to amb in hallway as tolerated -: i.spirometry as tolerated -: gentle iv hydration, will check electrolytes in am * . Review of Systems - Medications/Allergies Allergies/Adverse Reactions: Allergies Allergy/AdvReac Type Severity Reaction Status Date / Time No Known Allergies Allergy Verified 01/26/18 15:22 Medications: Current Medications Artificial Tears (Tears Naturale) 0 drop EA EYE PRN PRN PRN Reason: Dry Eyes Diphenhydramine HCl (Benadryl) 25 mg IVP Q3H PRN PRN Reason: Itching Diphenhydramine HCl (Benadryl) 25 mg PO Q3H PRN PRN Reason: Itching Diphenhydramine HCl (Benadryl) 25 mg IM Q3H PRN PRN Reason: Itching Hydralazine HCl (Apresoline) 10 mg SLOW IVP Q4H PRN PRN Reason: Systolic BP > 180 Last Admin: 01/29/18 12:43 Dose: 10 mg Multivitamins 10 ml/ Dextrose/ (Water) 510 mls @ 63.75 mls/hr IV DAILY [facility] Last Admin: 01/29/18 08:24 Dose: 510 mls Acetaminophen 1,000 mg/ Device 100 mls @ 400 mls/hr IVPB Q6H PRN PRN Reason: Fever/Mild Pain Stop: 01/29/18 17:32 Piperacillin Sod/Tazobactam (Sod 3.375 gm/ Sodium Chloride) 100 mls @ 200 mls/ hr IVPB Q6HR [facility] Last Admin: 01/29/18 12:07 Dose: 100 mls Potassium Chloride/Dextrose/Sod Cl (D5 1/2 Ns W/20 Meq Kcl) 1,000 mls @ 0 mls/ hr IV .Q0M [facility] Labetalol HCl (Normodyne) 20 mg SLOW IVP Q4H PRN PRN Reason: Systolic BP > 180 Miscellaneous Medication (Pharmacy To Dose) 0 each IVPB PRN PRN PRN Reason: RENALLY Pharmacy to Dose Morphine Sulfate (Morphine) 2 mg SLOW IVP Q2H PRN PRN Reason: Moderate Pain (4-6) Morphine Sulfate (Morphine) 4 mg SLOW IVP Q2H PRN PRN Reason: Severe Pain (7-10) Naloxone HCl (Narcan) 0.2 mg IV Q5MIN PRN PRN Reason: Opiate Reversal Ondansetron HCl (Zofran) 4 mg IVP Q6H PRN PRN Reason: Nausea/Vomiting Last Admin: 01/26/18 15:41 Dose: 4 mg Ondansetron HCl (Zofran) 4 mg IVP Q6H PRN PRN Reason: Nausea/Vomiting Pantoprazole Sodium (Protonix) 40 mg IVP 2100 [facility] Last Admin: 01/28/18 21:04 Dose: 40 mg Phenol (Chloraseptic [place] 180 Ml Bot) 0 ml PO PRN PRN PRN Reason: Sore Throat Promethazine HCl (Phenergan) 12.5 mg IM Q4H PRN PRN Reason: Nausea/Vomiting Sodium Chloride ([place] Nasal [place] 0.65%) 0 ml EA NARE QIDPRN PRN PRN Reason: Nasal Congestion Sodium Chloride (Flush - Normal Saline) 10 ml IVF Q12HR [facility] Last Admin: 01/29/18 07:49 Dose: Not Given Sodium Chloride (Flush - Normal Saline) 10 ml IVF PRN PRN PRN Reason: Saline Flush Zolpidem Tartrate (Ambien) 5 mg PO HSPRN PRN PRN Reason: Insomnia
[2018-01-29] MEDS: Pantoprazole 40 MG VIAL IVP SCH (20:54)
[2018-01-29] MEDS: Ondansetron HCl/PF 4 MG/2 ML Vial IVP PRN (20:54)
[2018-01-30] MEDS: Piperacillin/Tazobactam 3.375 GM in Sodium Chloride 0.9% 100 ML IVPB SCH ×4 (05:33→23:12)
[2018-01-30] MEDS: Ondansetron HCl/PF 4 MG/2 ML Vial IVP PRN (05:33)
[2018-01-30 05:59] LABS: Anion Gap 11 mmol/L (10-20); BUN (Urea Nitrogen) 13 mg/dL (8.4-25.7); Calc. Creatinine Clearance 63 mL/min (70-130); Calcium 8.4 mg/dL (7.8-10.44); Carbon Dioxide 24 mmol/L (23-31); Chloride 103 mmol/L (98-107); Estimated GFR-MDRD 86; Glucose 105 mg/dL (83-110); Potassium 3.8 mmol/L (3.5-5.1); Sodium 134 mmol/L (136-145)
[2018-01-30 06:43] LABS: Band 2 % (5-11); Hemoglobin 12.3 g/dL (14.0-18.0); Hypochromia SLIGHT = 6-15 cells (100X) (0-5/hpf); Lymphocytes 4 % (21-51); MDiff Complete? YES; Mean Corpuscular HGB CONC 32.5 g/dL (32.0-36.0); Mean Corpuscular Hemoglobin 28.3 pg (27.0-31.0); Mean Platelet Volume 7.9 fL (7.4-10.4); Monocytes 6 % (0-10); Neutrophil 88 % (42-75); PLT Morphology Comment Appears Adequate; Platelet Count 285 thou/uL (130-400); RBC Distribution Width 12.3 % (11.5-14.5); Red Blood Cell (RBC) Count 4.35 mill/uL (4.70-6.10); White Blood Cell (WBC) Count 20.6 thou/uL (4.8-10.8)
--- NOTE | 2018-01-30 09:13 | PDOC.GSPN ---
Surgery Progress Note: Subj - Subjective Patient reports: no new complaints, pain is less Narrative: c/o bloating and mild nausea, vomited overnight Surgery Progress Note: Obj - Vital signs Vital signs: Vital Signs - Most Recent Temp Pulse Resp BP Pulse Ox 98.6 F 89 20 156/91 H 94 L 01/30/18 08:31 01/30/18 08:31 01/30/18 08:31 01/30/18 07:25 01/30/18 08:31 - Physical Exam General: no distress Cardiovascular: regular rate and rhythm Respiratory: clear to auscultation Abdomen: soft, appropriately tender Wound: healing well Surgery Progress Note: Results - Labs Result Diagrams: 01/30/18 05:12 01/30/18 05:12 Lab results: Laboratory Results - last 24 hr 01/30/18 01/30/18 05:12 05:12 WBC 20.6 H RBC 4.35 L Hgb 12.3 L Hct 37.9 L MCV 87.0 MCH 28.3 MCHC 32.5 RDW 12.3 Plt Count 285 MPV 7.9 Neutrophils % (Manual) 88 H Band Neuts % (Manual) 2 L Lymphocytes % (Manual) 4 L Monocytes % (Manual) 6 Hypochromia SLIGHT = 6-15 cells Plt Morphology Comment Appears Adequate Sodium 134 L Potassium 3.8 Chloride 103 Carbon Dioxide 24 Anion Gap 11 BUN 13 Creatinine 0.87 Estimated GFR (MDRD) 86 Glucose 105 Calcium 8.4 Surgery Progress Note: A/P - Problem (1) SBO (small bowel obstruction) Current Visit: Yes Code(s): K56.609 - UNSP INTESTNL OBST, UNSP TO PARTIAL VERSUS COMPLETE OBST Status: Acute - Plan Plan: Back to sips of clears,
[2018-01-30] MEDS: MULTIVITAMINS IV SCH (09:24)
[2018-01-30] MEDS: WATER IV SCH (09:24)
[2018-01-30] MEDS: DEXTROSE IV SCH (09:24)
--- NOTE | 2018-01-30 12:33 | PDOC.PN ---
- Subjective Encounter Start Date: 01/30/18 Encounter Start Time: 09:40 Subjective: is on ice chips now -: vomited once last night, no flatus - Objective Resuscitation Status: Resuscitation Status FULL:Full Resuscitation MAR Reviewed: Yes Vital Signs & Weight: Vital Signs (12 hours) Temp Pulse Resp BP Pulse Ox 01/30/18 11:50 97.7 F 106 H 18 153/81 H 96 01/30/18 08:31 98.6 F 89 20 94 L 01/30/18 07:25 98.6 F 89 20 156/91 H 94 L 01/30/18 04:17 98.5 F 102 H 17 160/89 H 94 L 01/30/18 01:53 98.5 F 101 H 22 H 157/90 H 94 L Weight Admit Weight 125 lb 2 oz Weight 130 lb 8 oz I&O: 01/29/18 01/30/18 01/31/18 06:59 06:59 06:59 Intake Total 2650 1960 1280 Output Total 681 600 5201 Balance 1700 1260 110 Result Diagrams: 01/30/18 05:12 01/30/18 05:12 Phys Exam - Physical Examination HEENT: PERRLA, sclera anicteric Neck: no JVD, supple Respiratory: no wheezing, no rales Cardiovascular: RRR, no significant murmur Gastrointestinal: soft, non-tender Musculoskeletal: no edema, pulses present Neurological: non-focal, moves all 4 limbs Psychiatric: normal affect, A&O x 3 Dx/Plan (1) Postoperative ileus Code(s): K91.89 - OTH POSTPROCEDURAL COMPLICATIONS AND DISORDERS OF DGSTV SYS; K56.7 - ILEUS, UNSPECIFIED Status: Acute (2) SBO (small bowel obstruction) Code(s): K56.609 - UNSP INTESTNL OBST, UNSP TO PARTIAL VERSUS COMPLETE OBST Status: Acute Comment: s/p exploratory laparotomy, 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 (3) MAVERICK (acute kidney injury) Code(s): N17.9 - ACUTE KIDNEY FAILURE, UNSPECIFIED Status: Resolved (4) Metabolic acidosis Code(s): E87.2 - ACIDOSIS Status: Acute (5) Sepsis Code(s): A41.9 - SEPSIS, UNSPECIFIED ORGANISM Status: Suspected Qualifiers: Sepsis type: sepsis due to unspecified organism Qualified Code(s): A41.9 - Sepsis, unspecified organism - Plan continue iv hydration -: to ambulate as tolerated in hallway -: watch for electrolytes -: is on zosyn, morphine prn * . Review of Systems - Medications/Allergies Allergies/Adverse Reactions: Allergies Allergy/AdvReac Type Severity Reaction Status Date / Time No Known Allergies Allergy Verified 01/26/18 15:22 Medications: Current Medications Artificial Tears (Tears Naturale) 0 drop EA EYE PRN PRN PRN Reason: Dry Eyes Diphenhydramine HCl (Benadryl) 25 mg IVP Q3H PRN PRN Reason: Itching Diphenhydramine HCl (Benadryl) 25 mg PO Q3H PRN PRN Reason: Itching Diphenhydramine HCl (Benadryl) 25 mg IM Q3H PRN PRN Reason: Itching Hydralazine HCl (Apresoline) 10 mg SLOW IVP Q4H PRN PRN Reason: Systolic BP > 180 Last Admin: 01/29/18 12:43 Dose: 10 mg Multivitamins 10 ml/ Dextrose/ (Water) 510 mls @ 63.75 mls/hr IV DAILY [facility] Last Admin: 01/30/18 09:24 Dose: 510 mls Piperacillin Sod/Tazobactam (Sod 3.375 gm/ Sodium Chloride) 100 mls @ 200 mls/ hr IVPB Q6HR [facility] Last Admin: 01/30/18 12:19 Dose: 100 mls Potassium Chloride/Dextrose/Sod Cl (D5 1/2 Ns W/20 Meq Kcl) 1,000 mls @ 0 mls/ hr IV .Q0M [facility] Labetalol HCl (Normodyne) 20 mg SLOW IVP Q4H PRN PRN Reason: Systolic BP > 180 Miscellaneous Medication (Pharmacy To Dose) 0 each IVPB PRN PRN PRN Reason: RENALLY Pharmacy to Dose Morphine Sulfate (Morphine) 2 mg SLOW IVP Q2H PRN PRN Reason: Moderate Pain (4-6) Morphine Sulfate (Morphine) 4 mg SLOW IVP Q2H PRN PRN Reason: Severe Pain (7-10) Naloxone HCl (Narcan) 0.2 mg IV Q5MIN PRN PRN Reason: Opiate Reversal Ondansetron HCl (Zofran) 4 mg IVP Q6H PRN PRN Reason: Nausea/Vomiting Last Admin: 01/30/18 05:33 Dose: 4 mg Ondansetron HCl (Zofran) 4 mg IVP Q6H PRN PRN Reason: Nausea/Vomiting Pantoprazole Sodium (Protonix) 40 mg IVP 2100 [facility] Last Admin: 01/29/18 20:54 Dose: 40 mg Phenol (Chloraseptic [place] 180 Ml Bot) 0 ml PO PRN PRN PRN Reason: Sore Throat Promethazine HCl (Phenergan) 12.5 mg IM Q4H PRN PRN Reason: Nausea/Vomiting Sodium Chloride ([place] Nasal [place] 0.65%) 0 ml EA NARE QIDPRN PRN PRN Reason: Nasal Congestion Sodium Chloride (Flush - Normal Saline) 10 ml IVF Q12HR [facility] Last Admin: 01/30/18 09:28 Dose: Not Given Sodium Chloride (Flush - Normal Saline) 10 ml IVF PRN PRN PRN Reason: Saline Flush Zolpidem Tartrate (Ambien) 5 mg PO HSPRN PRN PRN Reason: Insomnia
[2018-01-30] MEDS: Pantoprazole 40 MG VIAL IVP SCH (20:06)
[2018-01-31 06:13] LABS: Anion Gap 14 mmol/L (10-20); BUN (Urea Nitrogen) 12 mg/dL (8.4-25.7); Calc. Creatinine Clearance 65 mL/min (70-130); Calcium 8.1 mg/dL (7.8-10.44); Carbon Dioxide 21 mmol/L (23-31); Chloride 103 mmol/L (98-107); Estimated GFR-MDRD 89; Glucose 82 mg/dL (83-110); Potassium 3.3 mmol/L (3.5-5.1); Sodium 135 mmol/L (136-145)
[2018-01-31] MEDS: Piperacillin/Tazobactam 3.375 GM in Sodium Chloride 0.9% 100 ML IVPB SCH ×4 (06:23→23:39)
[2018-01-31 06:37] LABS: Band 4 % (5-11); Hemoglobin 11.3 g/dL (14.0-18.0); Lymphocytes 3 % (21-51); MDiff Complete? YES; Mean Corpuscular HGB CONC 32.8 g/dL (32.0-36.0); Mean Corpuscular Hemoglobin 28.3 pg (27.0-31.0); Mean Corpuscular Volume 86.3 fL (78.0-98.0); Mean Platelet Volume 7.4 fL (7.4-10.4); Monocytes 7 % (0-10); Neutrophil 86 % (42-75); PLT Morphology Comment Appears Adequate; Platelet Count 276 thou/uL (130-400); RBC Distribution Width 12.1 % (11.5-14.5); White Blood Cell (WBC) Count 25.2 thou/uL (4.8-10.8)
[2018-01-31] MEDS: MULTIVITAMINS IV SCH (08:43)
[2018-01-31] MEDS: DEXTROSE IV SCH (08:43)
[2018-01-31] MEDS: WATER IV SCH (08:43)
--- NOTE | 2018-01-31 09:02 | PDOC.GSPN ---
Surgery Progress Note: Subj - Subjective Patient reports: no new complaints Narrative: Feels bloated but not having any nausea. Had a few bowel movements overnight Surgery Progress Note: Obj - Vital signs Vital signs: Vital Signs - Most Recent Temp Pulse Resp BP Pulse Ox 98.6 F 106 H 16 143/76 H 89 L 01/31/18 07:56 01/31/18 07:56 01/31/18 07:56 01/31/18 07:08 01/31/18 07:08 - Physical Exam General: no distress Cardiovascular: other (Increased heart rate) Respiratory: clear to auscultation Abdomen: soft, appropriately tender Wound: healing well Surgery Progress Note: Results - Labs Result Diagrams: 01/31/18 05:24 01/31/18 05:25 Lab results: Laboratory Results - last 24 hr 01/31/18 01/31/18 05:24 05:25 WBC 25.2 H RBC 4.00 L Hgb 11.3 L Hct 34.5 L MCV 86.3 MCH 28.3 MCHC 32.8 RDW 12.1 Plt Count 276 MPV 7.4 Neutrophils % (Manual) 86 H Band Neuts % (Manual) 4 L Lymphocytes % (Manual) 3 L Monocytes % (Manual) 7 Plt Morphology Comment Appears Adequate Sodium 135 L Potassium 3.3 L Chloride 103 Carbon Dioxide 21 L Anion Gap 14 BUN 12 Creatinine 0.84 Estimated GFR (MDRD) 89 Glucose 82 L Calcium 8.1 Surgery Progress Note: A/P - Problem (1) SBO (small bowel obstruction) Current Visit: Yes Code(s): K56.609 - UNSP INTESTNL OBST, UNSP TO PARTIAL VERSUS COMPLETE OBST Status: Acute Assessment and Plan: WBC up with more tachycardia -Plan second look laparotomy today. He had fairly severe ischemic changes at first operation, concerning that his WBC is not decreasing.
[2018-01-31] MEDS ORDERED: Fentanyl 250 MCG/5 ML VIAL ONE (10:33)
[2018-01-31] MEDS ORDERED: Ondansetron HCl/PF 4 MG/2 ML Vial ONE (10:42)
[2018-01-31] MEDS ORDERED: Succinylcholine Chloride 20 MG/ML 10 ml SYRINGE FS ONE (10:42)
[2018-01-31] MEDS ORDERED: Dexamethasone 20 MG/5 ML VIAL ONE (10:42)
[2018-01-31] MEDS ORDERED: PHENYLEPHRINE-NS 100 MCG/ML 10 ML SYRINGE ONE (10:42)
[2018-01-31] MEDS ORDERED: Lidocaine 1% PF 5 ML VIAL ONE (10:42)
[2018-01-31] MEDS ORDERED: Glycopyrrolate 0.2 MG/ML 5 ML SYRINGE ONE (10:42)
[2018-01-31] MEDS ORDERED: PROPOFOL 200 MG/20 ML VIAL ONE (10:42)
--- NOTE | 2018-01-31 10:58 | PDOC.PN ---
- Subjective Encounter Start Date: 01/31/18 Encounter Start Time: 09:15 Subjective: had 3 bm's overnight, no nausea or vomiting -: started fever overnight - Objective Resuscitation Status: Resuscitation Status FULL:Full Resuscitation MAR Reviewed: Yes Vital Signs & Weight: Vital Signs (12 hours) Temp Pulse Resp BP Pulse Ox 01/31/18 07:56 98.6 F 106 H 16 01/31/18 07:08 99.7 F H 109 H 20 143/76 H 89 L 01/31/18 04:19 98.6 F 106 H 16 154/80 H 92 L 01/31/18 00:00 98.6 F 104 H 20 145/77 H 92 L Weight Admit Weight 125 lb 2 oz Weight 131 lb 1.6 oz I&O: 01/30/18 01/31/18 02/01/18 06:59 06:59 06:59 Intake Total 1960 3156.25 Output Total 700 1595 Balance 1260 1561.25 Result Diagrams: 01/31/18 05:24 01/31/18 05:25 Phys Exam - Physical Examination HEENT: PERRLA, sclera anicteric Neck: no JVD, supple Respiratory: no wheezing, no rales Cardiovascular: RRR, no significant murmur Gastrointestinal: soft mild distention+ Musculoskeletal: no edema, pulses present Neurological: non-focal, moves all 4 limbs Psychiatric: normal affect, A&O x 3 Dx/Plan (1) Postoperative ileus Code(s): K91.89 - OTH POSTPROCEDURAL COMPLICATIONS AND DISORDERS OF DGSTV SYS; K56.7 - ILEUS, UNSPECIFIED Status: Acute (2) SBO (small bowel obstruction) Code(s): K56.609 - UNSP INTESTNL OBST, UNSP TO PARTIAL VERSUS COMPLETE OBST Status: Acute Comment: s/p exploratory laparotomy, 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 Review of Systems - Medications/Allergies Allergies/Adverse Reactions: Allergies Allergy/AdvReac Type Severity Reaction Status Date / Time No Known Allergies Allergy Verified 01/26/18 15:22 Medications: Current Medications Artificial Tears (Tears Naturale) 0 drop EA EYE PRN PRN PRN Reason: Dry Eyes Diphenhydramine HCl (Benadryl) 25 mg IVP Q3H PRN PRN Reason: Itching Diphenhydramine HCl (Benadryl) 25 mg PO Q3H PRN PRN Reason: Itching Diphenhydramine HCl (Benadryl) 25 mg IM Q3H PRN PRN Reason: Itching Hydralazine HCl (Apresoline) 10 mg SLOW IVP Q4H PRN PRN Reason: Systolic BP > 180 Last Admin: 01/29/18 12:43 Dose: 10 mg Multivitamins 10 ml/ Dextrose/ (Water) 510 mls @ 63.75 mls/hr IV DAILY [facility] Last Admin: 01/31/18 08:43 Dose: 510 mls Piperacillin Sod/Tazobactam (Sod 3.375 gm/ Sodium Chloride) 100 mls @ 200 mls/ hr IVPB Q6HR [facility] Last Admin: 01/31/18 06:23 Dose: 100 mls Potassium Chloride/Dextrose/Sod Cl (D5 1/2 Ns W/20 Meq Kcl) 1,000 mls @ 0 mls/ hr IV .Q0M [facility] Labetalol HCl (Normodyne) 20 mg SLOW IVP Q4H PRN PRN Reason: Systolic BP > 180 Miscellaneous Medication (Pharmacy To Dose) 0 each IVPB PRN PRN PRN Reason: RENALLY Pharmacy to Dose Morphine Sulfate (Morphine) 2 mg SLOW IVP Q2H PRN PRN Reason: Moderate Pain (4-6) Morphine Sulfate (Morphine) 4 mg SLOW IVP Q2H PRN PRN Reason: Severe Pain (7-10) Naloxone HCl (Narcan) 0.2 mg IV Q5MIN PRN PRN Reason: Opiate Reversal Ondansetron HCl (Zofran) 4 mg IVP Q6H PRN PRN Reason: Nausea/Vomiting Last Admin: 01/30/18 05:33 Dose: 4 mg Ondansetron HCl (Zofran) 4 mg IVP Q6H PRN PRN Reason: Nausea/Vomiting Pantoprazole Sodium (Protonix) 40 mg IVP 2100 [facility] Last Admin: 01/30/18 20:06 Dose: 40 mg Phenol (Chloraseptic [place] 180 Ml Bot) 0 ml PO PRN PRN PRN Reason: Sore Throat Promethazine HCl (Phenergan) 12.5 mg IM Q4H PRN PRN Reason: Nausea/Vomiting Sodium Chloride ([place] Nasal [place] 0.65%) 0 ml EA NARE QIDPRN PRN PRN Reason: Nasal Congestion Sodium Chloride (Flush - Normal Saline) 10 ml IVF Q12HR [facility] Last Admin: 01/30/18 20:06 Dose: Not Given Sodium Chloride (Flush - Normal Saline) 10 ml IVF PRN PRN PRN Reason: Saline Flush Zolpidem Tartrate (Ambien) 5 mg PO HSPRN PRN PRN Reason: Insomnia
[2018-01-31] MEDS ORDERED: HYDROmorphone 2 MG/ML VIAL ONE (11:32)
[2018-01-31] MEDS ORDERED: Promethazine HCl 25 MG/ML VIAL SLOW IVP PRN (12:44)
[2018-01-31] MEDS ORDERED: Ondansetron HCl/PF 4 MG/2 ML Vial IVP PRN ×2 (12:44→13:27)
[2018-01-31] MEDS ORDERED: HYDROmorphone 2 MG/ML VIAL SLOW IVP PRN (12:44)
[2018-01-31] MEDS ORDERED: Promethazine HCl 25 MG/ML VIAL IM PRN ×2 (12:44→13:27)
[2018-01-31] MEDS ORDERED: D5 1/2 NS w/20 mEq KCL 1,000 ML ONE (13:00)
[2018-01-31] MEDS ORDERED: Fentanyl 100 MCG/2 ML VIAL ONE (13:20)
--- NOTE | 2018-01-31 13:22 | OP ---
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 PROCEDURE PERFORMED: A second look laparotomy, abdominal washout. SURGEON: Dr. Russ. ANESTHESIA: General. ESTIMATED BLOOD LOSS: Minimal. COMPLICATIONS: None. SPECIMEN: None. FINDINGS: The affected intestine is much less ischemic. There is no area of necrosis, no infection, no purulence. TECHNIQUE: The patient was taken to the operating room and placed supine on the table. After genera l anesthetic was obtained, the Kimble is placed and an NG tube is placed. The abdomen is prepped and draped in a sterile fashion. Betty are removed. Midline incision is reopened by removing the PDS suture. There is a lot of ascites present. This is suctioned out. The small bowel was eviscerated. Running the small bowel reveals no evidence of ongoing end-organ ischemia. There are inflammatory changes to the previously affected small bowel; however, no necrosis, no ongoing ischemia, palpable p ulses in the mesentery. Small bowel was run all the way to the ligament of Treitz to ileocecal valve . The abdomen is irrigated using sterile solution. There is no bleeding. All instrument counts, ne edle counts, lap counts were correct. PDS was used to close the fascia from the top and the bottom a nd tied in the middle. Subcutaneous tissues are irrigated and closed using skin betty. The patien t is en route to recovery in stable condition. All instrument counts, needle counts, lap counts are correct.
[2018-01-31] MEDS ORDERED: diphenhydrAMINE 25 MG CAP PO PRN (13:27)
[2018-01-31] MEDS ORDERED: diphenhydrAMINE 50 MG/ML VIAL IM PRN (13:27)
[2018-01-31] MEDS ORDERED: diphenhydrAMINE 50 MG/ML VIAL IVP PRN (13:27)
[2018-01-31] MEDS ORDERED: Zolpidem Tartrate 5 MG TAB PO PRN (13:27)
[2018-01-31] MEDS ORDERED: Naloxone HCl 0.4 mg/ml Vial IV PRN (13:27)
[2018-01-31] MEDS ORDERED: fentaNYL Citrate/PF 2,000 MCG in Sodium Chloride 0.9% 60 ML IV PRN (13:27)
[2018-01-31] MEDS ORDERED: Communication Order-Pharmacy FS SCH (13:30)
[2018-01-31] MEDS: D5 1/2 NS w/20 mEq KCL 1,000 ML IV SCH ×2 (16:42→23:41)
[2018-01-31] MEDS: Pantoprazole 40 MG VIAL IVP SCH (20:00)
[2018-02-01] MEDS: Piperacillin/Tazobactam 3.375 GM in Sodium Chloride 0.9% 100 ML IVPB SCH ×4 (05:13→23:23)
[2018-02-01 08:13] LABS: Hemoglobin 11.1 g/dL (14.0-18.0); Mean Corpuscular HGB CONC 33.1 g/dL (32.0-36.0); Mean Corpuscular Volume 87.7 fL (78.0-98.0); Mean Platelet Volume 7.2 fL (7.4-10.4); Platelet Count 281 thou/uL (130-400); RBC Distribution Width 12.1 % (11.5-14.5); Red Blood Cell (RBC) Count 3.84 mill/uL (4.70-6.10); White Blood Cell (WBC) Count 26.2 thou/uL (4.8-10.8)
[2018-02-01] MEDS: WATER IV SCH (08:30)
[2018-02-01] MEDS: DEXTROSE IV SCH (08:30)
[2018-02-01] MEDS: MULTIVITAMINS IV SCH (08:30)
[2018-02-01 08:32] LABS: Anion Gap 11 mmol/L (10-20); BUN (Urea Nitrogen) 11 mg/dL (8.4-25.7); Calc. Creatinine Clearance 70 mL/min (70-130); Calcium 7.8 mg/dL (7.8-10.44); Carbon Dioxide 22 mmol/L (23-31); Chloride 107 mmol/L (98-107); Estimated GFR-MDRD Greater than 90; Glucose 148 mg/dL (83-110); Potassium 3.9 mmol/L (3.5-5.1); Sodium 136 mmol/L (136-145)
[2018-02-01 08:58] LABS: Band 11 % (5-11); Lymphocytes 3 % (21-51); MDiff Complete? YES; Monocytes 7 % (0-10); Neutrophil 78 % (42-75); RBC Morphology Normal; Reactive Lymphocytes 1 % (0-10)
[2018-02-01] MEDS: D5 1/2 NS w/20 mEq KCL 1,000 ML IV SCH ×2 (12:09→18:41)
--- NOTE | 2018-02-01 12:34 | PRG ---
DATE OF SERVICE: 02/01/2018 SUBJECTIVE: Postoperative day #1 reexploration for ischemia. Mr. Hernandez has no complaints today, he has been ambulatory. He states that he is hungry. PHYSICAL EXAMINATION: VITAL SIGNS: He is afebrile. Vital signs are stable. NG output for the shift is overnight was 80. ABDOMEN: His abdomen is distended, but soft, appropriately tender. LABORATORY DATA: His infectious count is 26, hemoglobin 11, creatinine 0.82. 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 No ongoing ischemia or necrosis on second look laparotomy. PLAN: I suspect prolonged ileus, probably needs a PICC line in anticipation of TPN to start since he is about a week out from any substantial p.o. intake.
--- NOTE | 2018-02-01 14:13 | PDOC.PN ---
- Subjective Encounter Start Date: 02/01/18 Encounter Start Time: 09:00 Subjective: no nausea or vomiting - Objective Resuscitation Status: Resuscitation Status FULL:Full Resuscitation MAR Reviewed: Yes Vital Signs & Weight: Vital Signs (12 hours) Temp Pulse Resp BP Pulse Ox 02/01/18 11:18 98.1 F 91 18 172/84 H 94 L 02/01/18 08:31 98.0 F 63 12 98 02/01/18 08:00 98.0 F 63 12 126/82 98 02/01/18 04:20 98.4 F 89 16 138/75 96 Weight Admit Weight 125 lb 2 oz Weight 137 lb 14.4 oz I&O: 01/31/18 02/01/18 02/02/18 06:59 06:59 06:59 Intake Total 3156.25 1971 Output Total 1595 1035 Balance 1561.25 936 Result Diagrams: 02/01/18 07:55 02/01/18 07:55 Phys Exam - Physical Examination HEENT: PERRLA, moist MMs Neck: no JVD, supple Respiratory: no wheezing, no rales Cardiovascular: RRR, no significant murmur Gastrointestinal: soft, positive bowel sounds Musculoskeletal: no edema, pulses present Neurological: non-focal, moves all 4 limbs Psychiatric: normal affect, A&O x 3 Dx/Plan (1) Postoperative ileus Code(s): K91.89 - OTH POSTPROCEDURAL COMPLICATIONS AND DISORDERS OF DGSTV SYS; K56.7 - ILEUS, UNSPECIFIED Status: Acute (2) SBO (small bowel obstruction) Code(s): K56.609 - UNSP INTESTNL OBST, UNSP TO PARTIAL VERSUS COMPLETE OBST Status: Acute Comment: s/p exploratory laparotomy, 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 Review of Systems - Medications/Allergies Allergies/Adverse Reactions: Allergies Allergy/AdvReac Type Severity Reaction Status Date / Time No Known Allergies Allergy Verified 01/26/18 15:22 Medications: Current Medications Artificial Tears (Tears Naturale) 0 drop EA EYE PRN PRN PRN Reason: Dry Eyes Diphenhydramine HCl (Benadryl) 25 mg IVP Q3H PRN PRN Reason: Itching Diphenhydramine HCl (Benadryl) 25 mg PO Q3H PRN PRN Reason: Itching Diphenhydramine HCl (Benadryl) 25 mg IM Q3H PRN PRN Reason: Itching Hydralazine HCl (Apresoline) 10 mg SLOW IVP Q4H PRN PRN Reason: Systolic BP > 180 Last Admin: 01/29/18 12:43 Dose: 10 mg Multivitamins 10 ml/ Dextrose/ (Water) 510 mls @ 63.75 mls/hr IV DAILY [facility] Last Admin: 02/01/18 08:30 Dose: 510 mls Piperacillin Sod/Tazobactam (Sod 3.375 gm/ Sodium Chloride) 100 mls @ 200 mls/ hr IVPB Q6HR [facility] Last Admin: 02/01/18 12:08 Dose: 100 mls Fentanyl Citrate 2,000 mcg/ (Sodium Chloride) 100 mls @ 0 mls/hr IV INF PRN PRN Reason: Pain Potassium Chloride/Dextrose/Sod Cl (D5 1/2 Ns W/20 Meq Kcl) 1,000 mls @ 100 mls /hr IV .Q10H [facility] Last Admin: 02/01/18 12:09 Dose: 1,000 mls Labetalol HCl (Normodyne) 20 mg SLOW IVP Q4H PRN PRN Reason: Systolic BP > 180 Miscellaneous Information (Communication Order-Pharmacy) 1 each FS ASDIR GOPAL Miscellaneous Medication (Pharmacy To Dose) 0 each IVPB PRN PRN PRN Reason: RENALLY Pharmacy to Dose Naloxone HCl (Narcan) 0.2 mg IV Q5MIN PRN PRN Reason: Opiate Reversal Ondansetron HCl (Zofran) 4 mg IVP Q6H PRN PRN Reason: Nausea/Vomiting Pantoprazole Sodium (Protonix) 40 mg IVP 2100 [facility] Last Admin: 01/31/18 20:00 Dose: 40 mg Phenol (Chloraseptic [place] 180 Ml Bot) 0 ml PO PRN PRN PRN Reason: Sore Throat Promethazine HCl (Phenergan) 12.5 mg IM Q4H PRN PRN Reason: Nausea/Vomiting Sodium Chloride ([place] Nasal [place] 0.65%) 0 ml EA NARE QIDPRN PRN PRN Reason: Nasal Congestion Sodium Chloride (Flush - Normal Saline) 10 ml IVF Q12HR [facility] Last Admin: 02/01/18 08:31 Dose: 10 ml Sodium Chloride (Flush - Normal Saline) 10 ml IVF PRN PRN PRN Reason: Saline Flush Zolpidem Tartrate (Ambien) 5 mg PO HSPRN PRN PRN Reason: Insomnia
[2018-02-01] MEDS: Pantoprazole 40 MG VIAL IVP SCH (21:50)
[2018-02-02] MEDS: Piperacillin/Tazobactam 3.375 GM in Sodium Chloride 0.9% 100 ML IVPB SCH (05:22)
[2018-02-02] MEDS: D5 1/2 NS w/20 mEq KCL 1,000 ML IV SCH ×2 (05:24→16:43)
[2018-02-02 06:24] LABS: Anion Gap 9 mmol/L (10-20); BUN (Urea Nitrogen) 9 mg/dL (8.4-25.7); Calc. Creatinine Clearance 74 mL/min (70-130); Calcium 7.7 mg/dL (7.8-10.44); Carbon Dioxide 23 mmol/L (23-31); Chloride 107 mmol/L (98-107); Estimated GFR-MDRD Greater than 90; Glucose 94 mg/dL (83-110); Potassium 3.4 mmol/L (3.5-5.1); Sodium 136 mmol/L (136-145)
[2018-02-02 07:15] LABS: Hemoglobin 10.9 g/dL (14.0-18.0); Mean Corpuscular HGB CONC 32.6 g/dL (32.0-36.0); Mean Corpuscular Hemoglobin 28.3 pg (27.0-31.0); Mean Corpuscular Volume 86.9 fL (78.0-98.0); Mean Platelet Volume 7.3 fL (7.4-10.4); Platelet Count 328 thou/uL (130-400); Red Blood Cell (RBC) Count 3.85 mill/uL (4.70-6.10); White Blood Cell (WBC) Count 19.8 thou/uL (4.8-10.8)
[2018-02-02 08:29] LABS: Band 3 % (5-11); Eosinophils 3 % (0-10); Lymphocytes 4 % (21-51); MDiff Complete? YES; Monocytes 3 % (0-10); Neutrophil 87 % (42-75); RBC Morphology Normal
[2018-02-02] MEDS: MEROPENEM 1 GM/50 ML 1 GM in Premix Bag 1 BAG IVPB SCH ×2 (09:24→17:47)
[2018-02-02] MEDS: MULTIVITAMINS IV SCH (09:25)
[2018-02-02] MEDS: WATER IV SCH (09:25)
[2018-02-02] MEDS: DEXTROSE IV SCH (09:25)
--- NOTE | 2018-02-02 10:55 | PDOC.PN ---
- Subjective Encounter Start Date: 02/02/18 Encounter Start Time: 09:30 Subjective: had a bm this am, no nausea -: has ng tube suction - Objective Resuscitation Status: Resuscitation Status FULL:Full Resuscitation MAR Reviewed: Yes Vital Signs & Weight: Vital Signs (12 hours) Temp Pulse Resp BP Pulse Ox 02/02/18 07:25 98.5 F 95 22 H 136/75 90 L 02/02/18 04:00 98.7 F 90 19 146/72 H 92 L 02/02/18 00:45 98.7 F 92 18 149/77 H 94 L Weight Admit Weight 125 lb 2 oz Weight 137 lb 14.4 oz I&O: 02/01/18 02/02/18 02/03/18 06:59 06:59 06:59 Intake Total 1971 2850 Output Total 1035 1400 Balance 936 1450 Result Diagrams: 02/02/18 05:38 02/02/18 05:38 Phys Exam - Physical Examination HEENT: PERRLA, sclera anicteric Neck: no JVD, supple Respiratory: no wheezing, no rales Cardiovascular: RRR, no significant murmur Gastrointestinal: soft, no distention Musculoskeletal: no edema, pulses present Neurological: non-focal, moves all 4 limbs Psychiatric: normal affect, A&O x 3 Dx/Plan (1) Postoperative ileus Code(s): K91.89 - OTH POSTPROCEDURAL COMPLICATIONS AND DISORDERS OF DGSTV SYS; K56.7 - ILEUS, UNSPECIFIED Status: Acute (2) SBO (small bowel obstruction) Code(s): K56.609 - UNSP INTESTNL OBST, UNSP TO PARTIAL VERSUS COMPLETE OBST Status: Acute Comment: s/p exploratory laparotomy, 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 Review of Systems - Medications/Allergies Allergies/Adverse Reactions: Allergies Allergy/AdvReac Type Severity Reaction Status Date / Time No Known Allergies Allergy Verified 01/26/18 15:22 Medications: Current Medications Artificial Tears (Tears Naturale) 0 drop EA EYE PRN PRN PRN Reason: Dry Eyes Diphenhydramine HCl (Benadryl) 25 mg IVP Q3H PRN PRN Reason: Itching Diphenhydramine HCl (Benadryl) 25 mg PO Q3H PRN PRN Reason: Itching Diphenhydramine HCl (Benadryl) 25 mg IM Q3H PRN PRN Reason: Itching Hydralazine HCl (Apresoline) 10 mg SLOW IVP Q4H PRN PRN Reason: Systolic BP > 180 Last Admin: 01/29/18 12:43 Dose: 10 mg Multivitamins 10 ml/ Dextrose/ (Water) 510 mls @ 63.75 mls/hr IV DAILY [facility] Last Admin: 02/02/18 09:25 Dose: 510 mls Fentanyl Citrate 2,000 mcg/ (Sodium Chloride) 100 mls @ 0 mls/hr IV INF PRN PRN Reason: Pain Last Admin: 02/01/18 18:28 Dose: 100 mls Potassium Chloride/Dextrose/Sod Cl (D5 1/2 Ns W/20 Meq Kcl) 1,000 mls @ 100 mls /hr IV .Q10H [facility] Last Admin: 02/02/18 05:24 Dose: 1,000 mls Meropenem 1 gm/ Device 50 mls @ 100 mls/hr IVPB Q8H [facility] Last Admin: 02/02/18 09:24 Dose: 50 mls Labetalol HCl (Normodyne) 20 mg SLOW IVP Q4H PRN PRN Reason: Systolic BP > 180 Miscellaneous Information (Communication Order-Pharmacy) 1 each FS ASDIR GOPAL Miscellaneous Medication (Pharmacy To Dose) 0 each IVPB PRN PRN PRN Reason: RENALLY Pharmacy to Dose Naloxone HCl (Narcan) 0.2 mg IV Q5MIN PRN PRN Reason: Opiate Reversal Ondansetron HCl (Zofran) 4 mg IVP Q6H PRN PRN Reason: Nausea/Vomiting Pantoprazole Sodium (Protonix) 40 mg IVP 2100 [facility] Last Admin: 02/01/18 21:50 Dose: 40 mg Phenol (Chloraseptic [place] 180 Ml Bot) 0 ml PO PRN PRN PRN Reason: Sore Throat Promethazine HCl (Phenergan) 12.5 mg IM Q4H PRN PRN Reason: Nausea/Vomiting Sodium Chloride ([place] Nasal [place] 0.65%) 0 ml EA NARE QIDPRN PRN PRN Reason: Nasal Congestion Sodium Chloride (Flush - Normal Saline) 10 ml IVF Q12HR [facility] Last Admin: 02/02/18 09:31 Dose: 10 ml Sodium Chloride (Flush - Normal Saline) 10 ml IVF PRN PRN PRN Reason: Saline Flush Zolpidem Tartrate (Ambien) 5 mg PO HSPRN PRN PRN Reason: Insomnia
[2018-02-02] MEDS ORDERED: Meropenem 1 GM in Sodium Chloride 0.9% 100 ML IVPB SCH (14:00)
--- NOTE | 2018-02-02 15:19 | PRG ---
DATE OF SERVICE: 02/02/2018 SUBJECTIVE: Mr. Hernandez is doing well today. He is passing gas and has had a bowel movement. He den ies nausea. PHYSICAL EXAMINATION: VITAL SIGNS: He is afebrile. His vital signs are stable. ABDOMEN: Soft. He has active bowel sounds. His wound is healing well. LABORATORY DATA: White blood cell count is 19, hemoglobin 10, creatinine 0.78, potassium 3.4. ASSESSMENT: Status post exploratory laparotomy for ischemic volvulus and reoperation for second look which was normal. PLAN: Discontinue NG, clear liquid diet, start to ambulate.
[2018-02-02] MEDS: Pantoprazole 40 MG VIAL IVP SCH (20:43)
[2018-02-03] MEDS: MEROPENEM 1 GM/50 ML 1 GM in Premix Bag 1 BAG IVPB SCH ×2 (00:42→08:03)
[2018-02-03 05:41] LABS: Anion Gap 7 mmol/L (10-20); BUN (Urea Nitrogen) 8 mg/dL (8.4-25.7); Calc. Creatinine Clearance 76 mL/min (70-130); Calcium 7.8 mg/dL (7.8-10.44); Carbon Dioxide 27 mmol/L (23-31); Chloride 105 mmol/L (98-107); Estimated GFR-MDRD Greater than 90; Glucose 101 mg/dL (83-110); Potassium 3.4 mmol/L (3.5-5.1); Sodium 136 mmol/L (136-145)
[2018-02-03 05:42] LABS: #Eosinphils 0.4 thou/uL (0.0-0.7); #Lymphocytes 1.7 thou/uL (1.20-3.40); #Monocytes 1.5 thou/uL (0.11-0.59); #Neutrophils 9.6 thou/uL (1.40-6.50); %Basophils 0.1 % (0.0-1.0); %Eosinophils 3.2 % (0.0-10.0); %Lymphocytes 12.5 % (21.0-51.0); %Neutrophils 73.1 % (42.0-75.0); Hemoglobin 10.2 g/dL (14.0-18.0); Mean Corpuscular HGB CONC 32.7 g/dL (32.0-36.0); Mean Corpuscular Hemoglobin 28.1 pg (27.0-31.0); Mean Corpuscular Volume 86.2 fL (78.0-98.0); Mean Platelet Volume 7.5 fL (7.4-10.4); Platelet Count 378 thou/uL (130-400); RBC Distribution Width 11.9 % (11.5-14.5); Red Blood Cell (RBC) Count 3.63 mill/uL (4.70-6.10); White Blood Cell (WBC) Count 13.1 thou/uL (4.8-10.8)
[2018-02-03 06:14] VITALS: BMI 22.3
[2018-02-03] MEDS: MULTIVITAMINS IV SCH (08:56)
[2018-02-03] MEDS: DEXTROSE IV SCH (08:56)
[2018-02-03] MEDS: WATER IV SCH (08:56)
[2018-02-03] MEDS: D5 1/2 NS w/20 mEq KCL 1,000 ML IV SCH (08:59)
--- NOTE | 2018-02-03 10:28 | PDOC.PN ---
- Subjective Encounter Start Date: 02/03/18 Encounter Start Time: 08:40 Subjective: no nausea or vomiting, tolerating liq diet -: had bm and is passing flatus - Objective Resuscitation Status: Resuscitation Status FULL:Full Resuscitation MAR Reviewed: Yes Vital Signs & Weight: Vital Signs (12 hours) Temp Pulse Resp BP Pulse Ox 02/03/18 08:05 98.6 F 86 16 90 L 02/03/18 07:14 98.6 F 86 16 159/82 H 90 L 02/03/18 04:00 98.2 F 87 16 150/79 H 95 02/03/18 00:51 98.7 F 88 14 152/75 H 94 L Weight Admit Weight 125 lb 2 oz Weight 138 lb 8 oz I&O: 02/02/18 02/03/18 02/04/18 06:59 06:59 06:59 Intake Total 2850 2420 Output Total 1400 1175 Balance 1450 1245 Result Diagrams: 02/03/18 04:56 02/03/18 04:56 Phys Exam - Physical Examination HEENT: PERRLA, moist MMs Neck: no JVD, supple Respiratory: no wheezing, no rales Cardiovascular: RRR, no significant murmur Gastrointestinal: soft, no distention Musculoskeletal: no edema, pulses present Neurological: non-focal, moves all 4 limbs Psychiatric: normal affect, A&O x 3 Dx/Plan (1) Postoperative ileus Code(s): K91.89 - OTH POSTPROCEDURAL COMPLICATIONS AND DISORDERS OF DGSTV SYS; K56.7 - ILEUS, UNSPECIFIED Status: Acute Comment: resolving, on clear liq diet (2) SBO (small bowel obstruction) Code(s): K56.609 - UNSP INTESTNL OBST, UNSP TO PARTIAL VERSUS COMPLETE OBST Status: Acute Comment: s/p exploratory laparotomy, 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 (3) MAVERICK (acute kidney injury) Code(s): N17.9 - ACUTE KIDNEY FAILURE, UNSPECIFIED Status: Resolved (4) Metabolic acidosis Code(s): E87.2 - ACIDOSIS Status: Resolved (5) Sepsis Code(s): A41.9 - SEPSIS, UNSPECIFIED ORGANISM Status: Acute Qualifiers: Sepsis type: sepsis due to unspecified organism Qualified Code(s): A41.9 - Sepsis, unspecified organism (6) Peritonitis (acute) generalized Code(s): K65.0 - GENERALIZED (ACUTE) PERITONITIS Status: Acute - Plan down to 13k now, on meropenem -: on clear liq diet -: to ambulate in hallway as tolerated -: is recovering well post op -: fentanyl prn, electrolytes are stable, h/h 04/05 * . Review of Systems - Medications/Allergies Allergies/Adverse Reactions: Allergies Allergy/AdvReac Type Severity Reaction Status Date / Time No Known Allergies Allergy Verified 01/26/18 15:22 Medications: Current Medications Artificial Tears (Tears Naturale) 0 drop EA EYE PRN PRN PRN Reason: Dry Eyes Diphenhydramine HCl (Benadryl) 25 mg IVP Q3H PRN PRN Reason: Itching Diphenhydramine HCl (Benadryl) 25 mg PO Q3H PRN PRN Reason: Itching Diphenhydramine HCl (Benadryl) 25 mg IM Q3H PRN PRN Reason: Itching Hydralazine HCl (Apresoline) 10 mg SLOW IVP Q4H PRN PRN Reason: Systolic BP > 180 Last Admin: 01/29/18 12:43 Dose: 10 mg Multivitamins 10 ml/ Dextrose/ (Water) 510 mls @ 63.75 mls/hr IV DAILY [facility] Last Admin: 02/03/18 08:56 Dose: 510 mls Fentanyl Citrate 2,000 mcg/ (Sodium Chloride) 100 mls @ 0 mls/hr IV INF PRN PRN Reason: Pain Last Admin: 02/01/18 18:28 Dose: 100 mls Meropenem 1 gm/ Device 50 mls @ 100 mls/hr IVPB Q8H [facility] Last Admin: 02/03/18 08:03 Dose: 50 mls Potassium Chloride/Dextrose/Sod Cl (D5 1/2 Ns W/20 Meq Kcl) 1,000 mls @ 50 mls/ hr IV .Q20H [facility] Last Admin: 02/03/18 08:59 Dose: 1,000 mls Labetalol HCl (Normodyne) 20 mg SLOW IVP Q4H PRN PRN Reason: Systolic BP > 180 Miscellaneous Information (Communication Order-Pharmacy) 1 each FS ASDIR GOPAL Miscellaneous Medication (Pharmacy To Dose) 0 each IVPB PRN PRN PRN Reason: RENALLY Pharmacy to Dose Naloxone HCl (Narcan) 0.2 mg IV Q5MIN PRN PRN Reason: Opiate Reversal Ondansetron HCl (Zofran) 4 mg IVP Q6H PRN PRN Reason: Nausea/Vomiting Pantoprazole Sodium (Protonix) 40 mg IVP 2100 [facility] Last Admin: 02/02/18 20:43 Dose: 40 mg Phenol (Chloraseptic [place] 180 Ml Bot) 0 ml PO PRN PRN PRN Reason: Sore Throat Promethazine HCl (Phenergan) 12.5 mg IM Q4H PRN PRN Reason: Nausea/Vomiting Sodium Chloride ([place] Nasal [place] 0.65%) 0 ml EA NARE QIDPRN PRN PRN Reason: Nasal Congestion Sodium Chloride (Flush - Normal Saline) 10 ml IVF Q12HR [facility] Last Admin: 02/03/18 08:05 Dose: 10 ml Sodium Chloride (Flush - Normal Saline) 10 ml IVF PRN PRN PRN Reason: Saline Flush Zolpidem Tartrate (Ambien) 5 mg PO HSPRN PRN PRN Reason: Insomnia
[2018-02-03] MEDS ORDERED: HYDROcodone/Acetaminophen 10/325 mg Tablet PO PRN ×2 (13:13)
--- NOTE | 2018-02-03 13:30 | PRG ---
DATE OF SERVICE: 02/03/2018 Mr. Hernnadez is doing well. He has had a bowel movement, he is passing gas. He tolerated the clear li quids. PHYSICAL EXAMINATION: VITAL SIGNS: He is afebrile. Vital signs are stable. ABDOMEN: Soft. His wounds are healing well. His midline wound has no erythema or drainage. I dc ged the dressing. 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 PLAN: Advance to full liquids. 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
[2018-02-03] MEDS: Pantoprazole 40 MG VIAL IVP SCH (21:18)
[2018-02-04 04:45] LABS: #Eosinphils 0.4 thou/uL (0.0-0.7); #Lymphocytes 2.2 thou/uL (1.20-3.40); #Monocytes 1.4 thou/uL (0.11-0.59); #Neutrophils 9.9 thou/uL (1.40-6.50); %Basophils 0.3 % (0.0-1.0); %Eosinophils 2.8 % (0.0-10.0); %Lymphocytes 15.8 % (21.0-51.0); %Neutrophils 71.1 % (42.0-75.0); Hemoglobin 10.1 g/dL (14.0-18.0); Mean Corpuscular HGB CONC 33.8 g/dL (32.0-36.0); Mean Corpuscular Hemoglobin 28.8 pg (27.0-31.0); Mean Corpuscular Volume 85.3 fL (78.0-98.0); Mean Platelet Volume 6.9 fL (7.4-10.4); Platelet Count 433 thou/uL (130-400); RBC Distribution Width 11.9 % (11.5-14.5); Red Blood Cell (RBC) Count 3.51 mill/uL (4.70-6.10); White Blood Cell (WBC) Count 13.9 thou/uL (4.8-10.8)
[2018-02-04 05:07] LABS: Anion Gap 10 mmol/L (10-20); BUN (Urea Nitrogen) 7 mg/dL (8.4-25.7); Calc. Creatinine Clearance 75 mL/min (70-130); Carbon Dioxide 25 mmol/L (23-31); Chloride 105 mmol/L (98-107); Estimated GFR-MDRD Greater than 90; Glucose 101 mg/dL (83-110); Potassium 3.1 mmol/L (3.5-5.1); Sodium 137 mmol/L (136-145)
[2018-02-04] MEDS ORDERED: Potassium Chloride 20 MEQ in Premix Bag 1 BAG IVPB SCH (07:45)
[2018-02-04] MEDS: DEXTROSE IV SCH (08:58)
[2018-02-04] MEDS: WATER IV SCH (08:58)
[2018-02-04] MEDS: MULTIVITAMINS IV SCH (08:58)
--- NOTE | 2018-02-04 12:51 | PDOC.PN ---
- Subjective Encounter Start Date: 02/04/18 Encounter Start Time: 12:49 Subjective: nsg notes rev, magdiel ovn, no c/o pain, no nausea, tolerating -: advanced diet, + BM, has been ambulating hallway w/o difficulty - Objective Resuscitation Status: Resuscitation Status FULL:Full Resuscitation Vital Signs & Weight: Vital Signs (12 hours) Temp Pulse Resp BP Pulse Ox 02/04/18 12:00 98.4 F 94 16 137/64 92 L 02/04/18 07:31 98.8 F 89 16 154/80 H 93 L 02/04/18 04:34 98.7 F 84 16 152/78 H 91 L Weight Admit Weight 125 lb 2 oz Weight 138 lb 8 oz I&O: 02/03/18 02/04/18 02/05/18 06:59 06:59 06:59 Intake Total 2420 1470 Output Total 1175 250 Balance 1245 1220 Result Diagrams: 02/04/18 04:22 02/04/18 04:22 Phys Exam - Physical Examination Constitutional: NAD seated in hospital chair HEENT: PERRLA, moist MMs Respiratory: clear to auscultation bilateral no conversational dyspnea, ICS Cardiovascular: RRR Gastrointestinal: soft, no distention, positive bowel sounds Musculoskeletal: pulses present Neurological: moves all 4 limbs Psychiatric: normal affect, A&O x 3 Dx/Plan - Plan (1) Postoperative ileus Code(s): K91.89 - OTH POSTPROCEDURAL COMPLICATIONS AND DISORDERS OF DGSTV SYS; K56.7 - ILEUS, UNSPECIFIED Status: Acute Comment: resolving, adv diet as per surg recs (2) SBO (small bowel obstruction) apprec surg c/s s/p exploratory laparotomy, 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 s/p ex lap second look 01/31/2018 post op ileus appears to be resolving (3) MAVERICK (acute kidney injury) Code(s): N17.9 - ACUTE KIDNEY FAILURE, UNSPECIFIED Status: Resolved (4) Metabolic acidosis Code(s): E87.2 - ACIDOSIS Status: Resolved (5) Sepsis Code(s): A41.9 - SEPSIS, UNSPECIFIED ORGANISM Status: Acute Qualifiers: Sepsis type: sepsis due to unspecified organism Qualified Code(s): A41.9 - Sepsis, unspecified organism empiric meropenem for concern for peritonitis leukocytosis is sig improved (6) Peritonitis (acute) generalized Code(s): K65.0 - GENERALIZED (ACUTE) PERITONITIS Status: Acute - Plan conversion to oral regimen possible d/c tomorrow d/w pt at bedside diet: adv as terry activity: as terry dvt ppx Review of Systems - Medications/Allergies Allergies/Adverse Reactions: Allergies Allergy/AdvReac Type Severity Reaction Status Date / Time No Known Allergies Allergy Verified 01/26/18 15:22 Medications: Current Medications Hydrocodone Bitart/Acetaminophen ([place] 10/325) 1 tab PO Q4H PRN PRN Reason: Pain Artificial Tears (Tears Naturale) 0 drop EA EYE PRN PRN PRN Reason: Dry Eyes Diphenhydramine HCl (Benadryl) 25 mg IVP Q3H PRN PRN Reason: Itching Diphenhydramine HCl (Benadryl) 25 mg PO Q3H PRN PRN Reason: Itching Diphenhydramine HCl (Benadryl) 25 mg IM Q3H PRN PRN Reason: Itching Hydralazine HCl (Apresoline) 10 mg SLOW IVP Q4H PRN PRN Reason: Systolic BP > 180 Last Admin: 01/29/18 12:43 Dose: 10 mg Multivitamins 10 ml/ Dextrose/ (Water) 510 mls @ 63.75 mls/hr IV DAILY [facility] Last Admin: 02/04/18 08:58 Dose: 510 mls Labetalol HCl (Normodyne) 20 mg SLOW IVP Q4H PRN PRN Reason: Systolic BP > 180 Miscellaneous Medication (Pharmacy To Dose) 0 each IVPB PRN PRN PRN Reason: RENALLY Pharmacy to Dose Naloxone HCl (Narcan) 0.2 mg IV Q5MIN PRN PRN Reason: Opiate Reversal Ondansetron HCl (Zofran) 4 mg IVP Q6H PRN PRN Reason: Nausea/Vomiting Pantoprazole Sodium (Protonix) [address] [facility] Last Admin: 02/03/18 21:18 Dose: 40 mg Phenol (Chloraseptic Emmett 180 Ml Bot) 0 ml PO PRN PRN PRN Reason: Sore Throat Promethazine HCl (Phenergan) 12.5 mg IM Q4H PRN PRN Reason: Nausea/Vomiting Sodium Chloride (Gregg Nasal [place] 0.65%) 0 ml EA NARE QIDPRN PRN PRN Reason: Nasal Congestion Sodium Chloride (Flush - Normal Saline) 10 ml IVF Q12HR GOPAL Last Admin: 02/03/18 21:18 Dose: 10 ml Sodium Chloride (Flush - Normal Saline) 10 ml IVF PRN PRN PRN Reason: Saline Flush Zolpidem Tartrate (Ambien) 5 mg PO HSPRN PRN PRN Reason: Insomnia
[2018-02-04] MEDS: Pantoprazole 40 MG VIAL IVP SCH (20:13)
--- NOTE | 2018-02-04 22:43 | PDOC.GSPN ---
Surgery Progress Note: Subj - Subjective Narrative: Patient is feeling better status post reduction of midgut volvulus and relook. His potassium is little low and was replaced. He is tolerating his full liquid diet and having bowel movements. Abdomen is soft and nondistended and he is afebrile with fairly normal vital signs. Blood pressure is intermittently slightly elevated. We will advance his diet to a GI soft diet and if he tolerates this he will likely be discharged home tomorrow. Surgery Progress Note: Obj - Vital signs Vital signs: Vital Signs - Most Recent Temp Pulse Resp BP Pulse Ox 98.7 F 89 16 151/64 H 93 L 02/04/18 20:00 02/04/18 20:00 02/04/18 20:00 02/04/18 20:00 02/04/18 20:00 Surgery Progress Note: Results - Labs Result Diagrams: 02/04/18 04:22 02/04/18 04:22
[2018-02-05 05:27] LABS: #Eosinphils 0.3 thou/uL (0.0-0.7); #Lymphocytes 2.4 thou/uL (1.20-3.40); #Monocytes 1.2 thou/uL (0.11-0.59); #Neutrophils 10.6 thou/uL (1.40-6.50); %Basophils 0.3 % (0.0-1.0); %Eosinophils 2.4 % (0.0-10.0); %Lymphocytes 16.4 % (21.0-51.0); %Monocytes 8.2 % (0.0-10.0); %Neutrophils 72.7 % (42.0-75.0); Hemoglobin 10.1 g/dL (14.0-18.0); Mean Corpuscular HGB CONC 33.8 g/dL (32.0-36.0); Mean Corpuscular Hemoglobin 28.9 pg (27.0-31.0); Mean Corpuscular Volume 85.4 fL (78.0-98.0); Mean Platelet Volume 7.4 fL (7.4-10.4); Platelet Count 481 thou/uL (130-400); RBC Distribution Width 12.1 % (11.5-14.5); Red Blood Cell (RBC) Count 3.51 mill/uL (4.70-6.10); White Blood Cell (WBC) Count 14.5 thou/uL (4.8-10.8)
[2018-02-05 05:47] LABS: Anion Gap 7 mmol/L (10-20); BUN (Urea Nitrogen) 7 mg/dL (8.4-25.7); Calc. Creatinine Clearance 75 mL/min (70-130); Calcium 7.9 mg/dL (7.8-10.44); Carbon Dioxide 28 mmol/L (23-31); Chloride 106 mmol/L (98-107); Estimated GFR-MDRD Greater than 90; Glucose 104 mg/dL (83-110); Potassium 3.1 mmol/L (3.5-5.1); Sodium 138 mmol/L (136-145)
[2018-02-05 11:15] VITALS: BP 143/72; TEMP 98.2
[2018-02-05] MEDS ORDERED: Potassium Chloride 20 MEQ in Premix Bag 1 BAG IVPB SCH (12:00)
== END 2018-02-05 14:43 | disposition home or self-care (01) | DRG 853 ==
LOC: ERS 09:10 → 2SW 15:18 → OBSVTOIN 01-27 05:38 → IMCU/EMU 01-27 06:53 → SURG A 01-28 12:03
PROVIDERS: ADMIT Internal Medicine; ATTEND Internal Medicine
PROC: 0DN80ZZ Release Small Intestine, Open Approach (ICD-10-PCS; principal; 2018-01-27)
PROC: 0DS80ZZ Reposition Small Intestine, Open Approach (ICD-10-PCS; 2018-01-27)
PROC: 0D9670Z Drainage of Stomach with Drainage Device, Via Natural or Artificial Opening (ICD-10-PCS; 2018-01-27)
PROC: 0WJG0ZZ Inspection of Peritoneal Cavity, Open Approach (ICD-10-PCS; 2018-01-31)
PROC: 3E0436Z Introduction of Nutritional Substance into Central Vein, Percutaneous Approach (ICD-10-PCS; 2018-02-01)
DX: A41.9 Sepsis, unspecified organism (principal); K65.0 Generalized (acute) peritonitis; K55.1 Chronic vascular disorders of intestine; N17.9 Acute kidney failure, unspecified; E87.2 Acidosis; K56.7 Ileus, unspecified; R65.20 Severe sepsis without septic shock; F41.9 Anxiety disorder, unspecified; F32.9 Major depressive disorder, single episode, unspecified; K66.0 Peritoneal adhesions (postprocedural) (postinfection); D72.829 Elevated white blood cell count, unspecified; E87.5 Hyperkalemia
CPT/HCPCS: 36415; 36416; 74018; 74177; 80048; 80053; 81003; 82553; 82570; 83605; 83690; 83735; 84100; 84300; 84484; 85025; 87040; 93005; 96361; 96372; 96374; 96375; 96376; A4216; C9113; J0131; J0360; J1100; J1170; J1642; J1815; J1956; J2001; J2185; J2250; J2270; J2370; J2405; J2543; J2704; J3010; J3370; J3480; J7050; J7070; P9045

== ENCOUNTER 2018-04-08 23:22 | Inpatient (IN) | payer MEDICARE ==
--- NOTE | 2018-04-09 00:04 | RAD ---
AP VIEW CHEST: 04/08/18 HISTORY: Chest pain. AP view chest is obtained on 04/08/18. AP view chest demonstrates EKG leads seen over the chest. There appears to be an NG tube distal aspec t overlying the upper thoracic region. I cannot confirm position of the course of the NG tube. The lungs are well aerated. No evidence of acute intrathoracic abnormality seen. No evidence of effus ions, pneumonia or pneumothorax seen. Some small areas of scarring seen in the left upper lobe. IMPRESSION: No evidence of acute intrathoracic abnormality seen. POS: [facility]
[2018-04-09] MEDS ORDERED: Morphine 2 MG/ML SYRINGE ONE (00:47)
[2018-04-09] MEDS ORDERED: Ondansetron PF 4 MG/2 ML Vial IVP PRN (01:44)
[2018-04-09] MEDS ORDERED: Ondansetron ODT 4 MG TAB SL PRN (01:44)
[2018-04-09] MEDS ORDERED: Acetaminophen 325 MG TAB PO PRN (01:44)
[2018-04-09 01:47] VITALS: BMI 18.3
[2018-04-09] MEDS: Sodium Chloride 0.9% 1,000 ML IV SCH ×2 (01:49→07:10)
[2018-04-09] MEDS ORDERED: Morphine 4 MG/ML VIAL SLOW IVP PRN (12:10)
[2018-04-09] MEDS: Morphine 2 MG/ML SYRINGE SLOW IVP PRN ×2 (12:25→23:39)
[2018-04-09] MEDS: D5 1/2 NS w/20 mEq KCL 1,000 ML IV SCH ×2 (14:06→20:41)
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
[2018-04-10] MEDS: D5 1/2 NS w/20 mEq KCL 1,000 ML IV SCH ×3 (04:57→20:54)
[2018-04-10 05:31] LABS: #Eosinphils 0.1 thou/uL (0.0-0.7); #Lymphocytes 2.3 thou/uL (1.20-3.40); #Monocytes 0.6 thou/uL (0.11-0.59); #Neutrophils 4.2 thou/uL (1.40-6.50); %Basophils 0.2 % (0.0-1.0); %Lymphocytes 31.6 % (21.0-51.0); %Monocytes 8.2 % (0.0-10.0); Hemoglobin 10.7 g/dL (14.0-18.0); Mean Corpuscular HGB CONC 31.4 g/dL (32.0-36.0); Mean Corpuscular Hemoglobin 25.9 pg (27.0-31.0); Mean Corpuscular Volume 82.5 fL (78.0-98.0); Platelet Count 253 thou/uL (130-400); RBC Distribution Width 12.5 % (11.5-14.5); Red Blood Cell (RBC) Count 4.12 mill/uL (4.70-6.10); White Blood Cell (WBC) Count 7.2 thou/uL (4.8-10.8)
[2018-04-10 05:43] LABS: Anion Gap 6 mmol/L (10-20); BUN (Urea Nitrogen) 6 mg/dL (8.4-25.7); Calc. Creatinine Clearance 64 mL/min (70-130); Calcium 8.3 mg/dL (7.8-10.44); Carbon Dioxide 29 mmol/L (23-31); Chloride 109 mmol/L (98-107); Estimated GFR-MDRD Greater than 90; Glucose 113 mg/dL (83-110); Sodium 140 mmol/L (136-145)
--- NOTE | 2018-04-10 09:25 | RAD ---
ABDOMEN 1 VIEW: HISTORY: A 72-year-old male with a history of small bowel obstruction. COMPARISON: 01/27/2018. Additionally, comparison is made to 04/08/2018 CT. FINDINGS: Oral contrast media has progressed into the colon. NG tube in place. There are some persistently di lated loops of small bowel but much less distended and much less dilated than on the cellar packer film from the 04/08/2018 study. IMPRESSION: Evidence for improving small bowel obstruction with less distention and dilatation with oral contrast progressing into the colon. Continued short-term followup. POS: [facility]
--- NOTE | 2018-04-10 10:00 | PRG ---
DATE OF SERVICE: 04/10/2018 Mr. Hernandez has no pain, minimal NG output. He had a bowel movement. 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 He has not had a colonoscopy since the . PHYSICAL EXAMINATION: VITAL SIGNS: Blood pressure is 147/79, pulse 70, respirations are 16. ABDOMEN: Soft, less distended. He has occasional bowel sounds. No guarding or rebound. Well Well- healed midline incision without hernia. White blood cell count is 7, hemoglobin 10, platelet count is 253, creatinine 0.74. ASSESSMENT: Partial small-bowel obstruction, suspect this is mostly resolved. PLAN: Small bowel follow through today. He will need outpatient colonoscopy due to his chronic anem ia and chronic pelvic pain.
[2018-04-10] MEDS: Morphine 2 MG/ML SYRINGE SLOW IVP PRN ×2 (12:21→17:15)
[2018-04-10] MEDS: Ondansetron PF 4 MG/2 ML Vial IVP PRN ×2 (12:21→17:21)
--- NOTE | 2018-04-10 15:44 | RAD ---
SMALL BOWEL SERIES: Date: 04/10/18 HISTORY: 72-year-old female with history of follow-up small bowel obstruction. TECHNIQUE/FINDINGS: The patient was given Gastrografin orally through the NG tube. Films out to 3 hours demonstrate passa ge of the contrast through mildly dilated small bowel and into the colon. IMPRESSION: Evidence for minimal partial small bowel obstruction with several loops of small bowel which are mini karo dilated, but oral contrast media passes throughout the small bowel and into the colon completel y by 1-3 hours. POS: [facility]
[2018-04-11] MEDS: D5 1/2 NS w/20 mEq KCL 1,000 ML IV SCH ×2 (06:43→21:27)
[2018-04-11] MEDS: Pantoprazole 40 MG VIAL IVP SCH (08:23)
--- NOTE | 2018-04-11 10:57 | PRG ---
DATE OF SERVICE: 04/11/2018 SUBJECTIVE: Mr. Hernandez had some vomiting last night after starting clears; however, he feels good th is morning. He is having multiple liquid stools. No persistent nausea. PHYSICAL EXAMINATION: VITAL SIGNS: He is afebrile. Vital signs are stable. ABDOMEN: Soft. It is nondistended. He has active bowel sounds. Previous incision is well healed. Small bowel follow-through yesterday revealed passage in 3 hours with persistent dilated small intes leann, but no complete blockage. ASSESSMENT: 1. Partial small-bowel obstruction, resolving. 2. History of midgut volvulus and severe intestinal ischemia. Some of this could be related to adyn amic ileus, a residual from that. PLAN: Continue hospitalization. Advanced to full liquid diet, likely home tomorrow if tolerates.
[2018-04-12] MEDS: Pantoprazole 40 MG VIAL IVP SCH (08:11)
[2018-04-12 11:42] VITALS: BP 127/70; TEMP 97.5
--- NOTE | 2018-04-12 12:34 | DIS ---
DATE OF ADMISSION: 04/09/2018 DATE OF DISCHARGE: 04/12/2018 ADMIT DIAGNOSIS: Small-bowel obstruction, partial. DISCHARGE DIAGNOSIS: Small-bowel obstruction, partial. PROCEDURES: None. CONDITION AT DISCHARGE: Improved. STAFF: Dr. Reynaldo Russ. HOSPITAL COURSE: The patient was admitted, had NG tube placed. On hospital day #2, he was doing wel l. He had a bowel movement. A Gastrografin small bowel follow through was performed which showed sl ight delay in contrast, but it did get to the colon. He had multiple bowel movements since. His NG tube was removed, he was started on clear liquid diet. The first evening he did vomit after clear li quids, but since then has done well. He is having multiple bowel movements. He is passing gas. He is tolerating the full liquid diet. He has no abdominal pain. He is being discharged home. He natanael gandara has an appointment to see me on 04/24/2018. No prescriptions at discharge.
== END 2018-04-12 12:23 | disposition home or self-care (01) | DRG 390 ==
LOC: ERS 23:22 → OBSVTOIN 04-09 01:29 → SURG A 04-09 01:29
PROVIDERS: ADMIT Surgery; ATTEND Surgery
PROC: 0D9670Z Drainage of Stomach with Drainage Device, Via Natural or Artificial Opening (ICD-10-PCS; principal; 2018-04-09)
DX: K56.600 Partial intestinal obstruction, unspecified as to cause (principal); Z79.899 Other long term (current) drug therapy; D64.9 Anemia, unspecified
CPT/HCPCS: 36415; 71045; 74018; 74250; 80048; 85025; 93005; 96361; 96374; C9113; J2270; J2405

== ENCOUNTER 2018-06-15 06:11 | Day surgery (SDC) | payer MEDICARE ==
[2018-06-14 12:00] VITALS: BMI 18.6
[2018-06-15] MEDS ORDERED: CEFAZOLIN 2 GM/50 ML BAG ONE (06:33)
[2018-06-15] MEDS ORDERED: Bupivacaine/Epinephrine 0.25% 30 ML VIAL ONE ×2 (06:49→08:18)
[2018-06-15] MEDS ORDERED: Fentanyl 100 MCG/2 ML VIAL ONE (07:02)
[2018-06-15] MEDS ORDERED: Ondansetron PF 4 MG/2 ML Vial ONE (14:06)
[2018-06-15] MEDS ORDERED: PROPOFOL 200 MG/20 ML VIAL ONE (14:06)
[2018-06-15] MEDS ORDERED: ePHEDrine/0.9% NaCl/PF SYRINGE 50 mg/10 ml ONE (14:06)
[2018-06-15] MEDS ORDERED: Lidocaine 1% PF 5 ML VIAL ONE (14:06)
--- NOTE | 2018-06-16 13:08 | OP ---
DATE OF PROCEDURE: 06/15/2018 PREOPERATIVE DIAGNOSES: 1. Malignant basal cell carcinoma, left arm, excised diameter 3 cm. 2. Malignant basal cell carcinoma, left superior neck, 2 cm diameter of excision. POSTOPERATIVE DIAGNOSES: 1. Malignant basal cell carcinoma, left arm, excised diameter 3 cm. 2. Malignant basal cell carcinoma, left superior neck, 2 cm diameter of excision. PROCEDURES PERFORMED: 1. Excision of 3 cm greatest diameter basal cell carcinoma, left arm. 2. Excision of 2 cm in greatest diameter basal cell carcinoma, left neck. 3. Complex layered closure of 9 cm, left arm. 4. Complex layered closure of 6 cm, left neck. ANESTHESIA: General. ESTIMATED BLOOD LOSS: Minimal. COMPLICATIONS: None. SPECIMEN: Specimens were marked and sent to [facility] for frozen section. Initial frozen section of left arm was negative for margin involvement. Initial frozen section of left neck revealed a small evidence of maybe the deep margin positivity, so an additional margin of that is obtained. DESCRIPTION OF PROCEDURE: The patient was taken to the operating room and laid in supine position on the operating room table. After general anesthetic was obtained, the left neck and left arm were prepped and draped in a sterile fashion. A wide local excision was performed on the left arm with a 3 cm cardona in diameter excision, 9 cm in length. Margins were negative on frozen section. Extensive undermining was performed and the wound was closed using 3-0 Vicryl, 4-0 Monocryl, and Steri-Strips. A 2 cm in diameter excision, 6 cm in length excision performed on the neck. Initial frozen section revealed close margin deep and so an additional margin was obtained. The wound is extensive undermining was performed and the wound was closed using 3-0 Vicryl, 4-0 Monocryl, and Dermabond. The patient was sent to Recovery in stable condition. All instrument counts, needle counts, and lap counts were correct. Job ID: [id number]
--- NOTE | 2018-06-26 05:40 | PQF ---
[facility] POST DISCHARGE CLINICAL DOCUMENTATION IMPROVEMENT CLARIFICATION FORM l Todays Date: 06/26/18 l Patients Name ZENY LE l l Admit Date 06/15/18 l Disch Date 06/15/18 Hand Hide Stretcher Name Robbie Sousa Email: [email or web address] Cell: [phone] To be completed by Hand Hide Stretcher: Present Clinical Indicators - Signs / Symptoms Results and Location in Medical Record [ ] Documentation of: [ ] [ ] Documentation of: [ ] [ ] Documentation of: [ ] [ ] Documentation of: [ ] [ ] Risks [ ] [ ] [ ] Treatment [ ] BASAL CELL CARCINOMA LEFT FACE BASAL CELL CARCINOMA LEFT ARM EPIDERMAL INCLUSION CYST LEFT NECK QUERY FOR SIZE OF EXCISED MARGINS OF BCC OF FACE AND ARM CLARIFICATION IF BIOPSY OR EXCISION OF LEFT NECK FOR INCLUSION CYST WAS DONE, KINDLY PROVIDE AN ADDENDUM IN OP REPORT. PLEASE ALSO PROVIDE SIZE OF EXCISED LESION AND MARGINS IF EXCISION WAS DONE ON THE CYST. THANK YOU. [ ] [ ] To be completed by Physician: STEF ARCHIBALD The documentation in this patients record requires clarification to ensure coding compliance and accuracy. Check the appropriate box and include in your discharge summary. [ ] [ ] [ ] [ ] Please check this box if this does not apply to this patient [ ] Unable to determine [ ] Other diagnosis: Review the following information and exercise your independent professional judgment in responding to the clarification. Based upon the clinical findings, risk factors, and treatment, please clarify if you are treating one of the above probable or suspected diagnoses. Physician Signature: Date Time MTDD
== END 2018-06-15 11:43 | disposition home or self-care (01) ==
LOC: SDC 06:11
PROVIDERS: ATTEND Surgery
PROC: 0HB4XZZ Excision of Neck Skin, External Approach (ICD-10-PCS; principal; 2018-06-15)
PROC: 0HBCXZZ Excision of Left Upper Arm Skin, External Approach (ICD-10-PCS; 2018-06-15)
DX: C44.41 Basal cell carcinoma of skin of scalp and neck (principal); C44.619 Basal cell carcinoma of skin of left upper limb, including shoulder; L72.0 Epidermal cyst
CPT/HCPCS: 88304; 88305; 88331; 88332; J2001; J2405; J2704; J3010

== ENCOUNTER 2022-10-10 03:00 | Inpatient (IN) | payer OTHER, MEDICARE ==
[2022-10-10] MEDS ORDERED: Morphine 4 MG/ML VIAL ONE (03:42)
[2022-10-10] MEDS ORDERED: Ondansetron PF 4 MG/2 ML Vial IVP PRN ×2 (03:45→05:14)
[2022-10-10] MEDS ORDERED: Ondansetron ODT 4 MG TAB SL PRN (03:45)
[2022-10-10] MEDS ORDERED: Acetaminophen 325 MG TAB PO PRN (03:45)
[2022-10-10] MEDS ORDERED: Sodium Chloride 0.9% 1,000 ML IV SCH (03:45)
[2022-10-10] MEDS ORDERED: Morphine 2 MG/ML VIAL SLOW IVP PRN (05:13)
[2022-10-10] MEDS ORDERED: Acetaminophen 500 MG TAB PO SCH (06:00)
[2022-10-10 06:21] VITALS: BMI 19.3
[2022-10-10] MEDS: Acetaminophen 500 MG TAB PO SCH ×3 (06:26→18:00)
[2022-10-10] MEDS: Sodium Chloride 0.9% 1,000 ML IV SCH ×3 (06:45→21:14)
[2022-10-10] MEDS ORDERED: TETANUS, DIPHTHERIA TOX,ADULT (TDVAX) 0.5 ML VIAL IM ONE (07:14)
[2022-10-10] MEDS ORDERED: Dextrose 5% in Water 1,000 ML IV PRN (07:14)
[2022-10-10] MEDS ORDERED: Dextrose 50% Abboject 50 ML SYRINGE SLOW IVP PRN (07:14)
[2022-10-10] MEDS ORDERED: Ipratropium/Albuterol 3 ML NEB NEB PRN ×2 (07:14→07:27)
[2022-10-10] MEDS: Polyethylene Glycol 3350 17 GM Packet PO SCH (07:33)
[2022-10-10] MEDS: Senokot S 8.6-50 MG TAB PO SCH ×2 (07:33→21:13)
[2022-10-10 08:06] LABS: #Lymphocytes 1.2 thou/uL (1.20-3.40); #Monocytes 0.7 thou/uL (0.11-0.59); #Neutrophils 11.2 thou/uL (1.40-6.50); %Basophils 0.3 % (0.0-1.0); %Eosinophils 0.2 % (0.0-10.0); %Lymphocytes 8.8 % (21.0-51.0); %Monocytes 5.2 % (0.0-10.0); %Neutrophils 85.6 % (42.0-75.0); Mean Corpuscular HGB CONC 32.5 g/dL (32.0-36.0); Mean Corpuscular Volume 89.3 fl (78.0-98.0); Mean Platelet Volume 7.6 fL (7.4-10.4); Platelet Count 270 10x3/uL (130-400); Red Blood Cell (RBC) Count 4.13 mill/uL (4.70-6.10); White Blood Cell (WBC) Count 13.1 10x3/uL (4.8-10.8)
[2022-10-10 08:18] LABS: INR-International Normal Ratio 0.9; PTT 28.9 sec (22.9-36.1)
[2022-10-10 08:23] LABS: Anion Gap 16 mmol/L (10-20); BUN (Urea Nitrogen) 5 mg/dL (8.4-25.7); Calc. Creatinine Clearance 61 mL/min (70-130); Carbon Dioxide 16 mmol/L (23-31); Chloride 101 mmol/L (98-107); Estimated GFR 92; Glucose 81 mg/dL (83-110); Magnesium 1.6 mg/dL (1.6-2.6); Phosphorus 3.9 mg/dL (2.3-4.7); Potassium 4.8 mmol/L (3.5-5.1); Sodium 128 mmol/L (136-145)
[2022-10-10] MEDS: CEFAZOLIN 2 GM in Sodium Chloride 0.9% 100 ML IVPB SCH ×4 (08:58→21:30)
[2022-10-10] MEDS: traMADol HCl 50 MG TAB PO SCH ×2 (08:58→17:01)
[2022-10-10] MEDS ORDERED: traMADol HCl 50 MG TAB PO PRN (10:00)
[2022-10-10] MEDS ORDERED: Cyclobenzaprine 10 MG TAB PO PRN ×2 (10:00→15:45)
[2022-10-10] MEDS ORDERED: Fentanyl 250 MCG/5 ML VIAL ONE (12:55)
[2022-10-10] MEDS ORDERED: Midazolam HCl 2 mg/2 ml Vial ONE (12:55)
[2022-10-10] MEDS ORDERED: CEFAZOLIN 2 GM VIAL ONE (13:55)
[2022-10-10] MEDS ORDERED: Sodium Chloride 0.9% 100 ML ONE (13:56)
[2022-10-10] MEDS ORDERED: Bupivacaine HCl 0.5%/Epinephrine 1:200,000/PF 30 ml Vial ONE (14:00)
[2022-10-10] MEDS ORDERED: Ondansetron PF 4 MG/2 ML Vial ONE (14:04)
[2022-10-10] MEDS ORDERED: Lidocaine 1% PF 5 ML VIAL ONE (14:04)
[2022-10-10] MEDS ORDERED: PHENYLEPHRINE-NS 100 MCG/ML 10 ML SYRINGE ONE (14:04)
[2022-10-10] MEDS ORDERED: Rocuronium Bromide 10 MG/ML (10ML VIAL) ONE (14:04)
[2022-10-10] MEDS ORDERED: NEOSTIGMINE 3 MG/3 ML SYR 3 MG/3 ML SYRINGE ONE (14:04)
[2022-10-10] MEDS ORDERED: Dexamethasone 20 MG/5 ML VIAL ONE (14:04)
[2022-10-10] MEDS ORDERED: Glycopyrrolate 0.2 MG/ML 5 ML SYRINGE ONE (14:04)
[2022-10-10] MEDS ORDERED: PROPOFOL 200 MG/20 ML VIAL ONE (14:04)
[2022-10-10] MEDS: Oxazepam 10 MG CAP PO SCH ×2 (15:31→21:13)
[2022-10-10] MEDS: Gabapentin 300 MG CAP PO SCH ×2 (15:31→21:13)
[2022-10-10] MEDS ORDERED: Labetalol HCl 100 MG/20 ML VIAL ONE (17:12)
[2022-10-10] MEDS ORDERED: fentaNYL 50 mcg/mL 1 mL Vial ONE ×2 (17:13→17:46)
[2022-10-10] MEDS ORDERED: Ondansetron HCl/PF 4 MG/2 ML Vial IVP PRN (17:14)
[2022-10-11] MEDS: Acetaminophen 500 MG TAB PO SCH ×4 (01:53→18:36)
[2022-10-11] MEDS: traMADol HCl 50 MG TAB PO SCH ×3 (01:54→18:38)
[2022-10-11 05:27] LABS: #Lymphocytes 0.6 thou/uL (1.20-3.40); #Monocytes 0.6 thou/uL (0.11-0.59); %Basophils 0.3 % (0.0-1.0); %Lymphocytes 5.8 % (21.0-51.0); %Neutrophils 87.9 % (42.0-75.0); Hemoglobin 10.3 g/dL (14.0-18.0); Mean Corpuscular HGB CONC 31.8 g/dL (32.0-36.0); Mean Corpuscular Hemoglobin 28.6 pg (27.0-31.0); Mean Corpuscular Volume 89.9 fl (78.0-98.0); Platelet Count 260 10x3/uL (130-400); RBC Distribution Width 11.8 % (11.5-14.5); Red Blood Cell (RBC) Count 3.61 mill/uL (4.70-6.10); White Blood Cell (WBC) Count 10.3 10x3/uL (4.8-10.8)
[2022-10-11 05:49] LABS: Anion Gap 12 mmol/L (10-20); BUN (Urea Nitrogen) 9 mg/dL (8.4-25.7); Calc. Creatinine Clearance 56 mL/min (70-130); Calcium 7.2 mg/dL (7.8-10.44); Carbon Dioxide 19 mmol/L (23-31); Chloride 103 mmol/L (98-107); Estimated GFR 90; Glucose 153 mg/dL (83-110); Potassium 4.9 mmol/L (3.5-5.1); Sodium 129 mmol/L (136-145)
[2022-10-11] MEDS: CEFAZOLIN 2 GM in Sodium Chloride 0.9% 100 ML IVPB SCH ×3 (06:29→08:03)
[2022-10-11] MEDS: Oxazepam 10 MG CAP PO SCH ×3 (06:30→22:10)
[2022-10-11] MEDS: Sodium Chloride 0.9% 1,000 ML IV SCH ×3 (06:31→22:12)
[2022-10-11] MEDS: Gabapentin 300 MG CAP PO SCH ×3 (11:51→22:10)
[2022-10-11] MEDS: Folic Acid 1 MG TAB PO SCH (18:35)
[2022-10-11] MEDS: Senokot S 8.6-50 MG TAB PO SCH ×2 (18:35→22:10)
[2022-10-11] MEDS: Thiamine 100 MG TAB PO SCH (18:35)
[2022-10-11] MEDS: Polyethylene Glycol 3350 17 GM Packet PO SCH (18:35)
[2022-10-12] MEDS: traMADol HCl 50 MG TAB PO SCH ×3 (02:08→15:37)
[2022-10-12] MEDS: Acetaminophen 500 MG TAB PO SCH ×2 (02:09→05:36)
[2022-10-12 05:34] LABS: #Basophils 0.1 thou/uL (0.0-0.2); #Monocytes 0.9 thou/uL (0.11-0.59); #Neutrophils 9.1 thou/uL (1.40-6.50); %Basophils 0.4 % (0.0-1.0); %Eosinophils 0.1 % (0.0-10.0); %Lymphocytes 18.6 % (21.0-51.0); %Monocytes 7.2 % (0.0-10.0); %Neutrophils 73.1 % (42.0-75.0); Hemoglobin 10.4 g/dL (14.0-18.0); Mean Corpuscular HGB CONC 32.3 g/dL (32.0-36.0); Mean Corpuscular Hemoglobin 28.2 pg (27.0-31.0); Mean Corpuscular Volume 87.3 fl (78.0-98.0); Mean Platelet Volume 10.1 fL (7.4-10.4); Platelet Count 277 10x3/uL (130-400); RBC Distribution Width 13.1 % (11.5-14.5); Red Blood Cell (RBC) Count 3.69 mill/uL (4.70-6.10); White Blood Cell (WBC) Count 12.4 10x3/uL (4.8-10.8)
[2022-10-12] MEDS: Oxazepam 10 MG CAP PO SCH (05:36)
[2022-10-12 06:05] LABS: Anion Gap 5 mmol/L (10-20); BUN (Urea Nitrogen) 10 mg/dL (8.4-25.7); Calc. Creatinine Clearance 61 mL/min (70-130); Calcium 7.9 mg/dL (7.8-10.44); Carbon Dioxide 27 mmol/L (23-31); Chloride 105 mmol/L (98-107); Estimated GFR 92; Glucose 111 mg/dL (83-110); Magnesium 1.9 mg/dL (1.6-2.6); Phosphorus 1.7 mg/dL (2.3-4.7); Potassium 4.2 mmol/L (3.5-5.1); Sodium 133 mmol/L (136-145)
[2022-10-12] MEDS: Sodium Chloride 0.9% 1,000 ML IV SCH (06:17)
[2022-10-12] MEDS ORDERED: PHOS-NAK 1 PKT PACK PO SCH (09:00)
[2022-10-12] MEDS: Polyethylene Glycol 3350 17 GM Packet PO SCH (09:38)
[2022-10-12] MEDS: Gabapentin 300 MG CAP PO SCH ×2 (09:39→15:37)
[2022-10-12] MEDS: Thiamine 100 MG TAB PO SCH (09:40)
[2022-10-12] MEDS: Folic Acid 1 MG TAB PO SCH (09:40)
[2022-10-12] MEDS: Senokot S 8.6-50 MG TAB PO SCH (09:40)
[2022-10-12 15:25] VITALS: BP 127/67; TEMP 98.5
== END 2022-10-12 16:46 | disposition home or self-care (01) | DRG 493 ==
LOC: ERS 03:00 → SURG B 03:25
PROVIDERS: ADMIT Surgery; ATTEND Surgery
PROC: 0PSD04Z Reposition Left Humeral Head with Internal Fixation Device, Open Approach (ICD-10-PCS; principal; 2022-10-10)
PROC: 0PSG04Z Reposition Left Humeral Shaft with Internal Fixation Device, Open Approach (ICD-10-PCS; 2022-10-10)
DX: S42.252 Displaced fracture of greater tuberosity of left humerus (principal); E87.1 Hypo-osmolality and hyponatremia; S52.92XA Unspecified fracture of left forearm, initial encounter for closed fracture; I10 Essential (primary) hypertension; S42.392B Other fracture of shaft of left humerus, initial encounter for open fracture; F17.220 Nicotine dependence, chewing tobacco, uncomplicated; W19.XXXA Unspecified fall, initial encounter; Y92.89 Other specified places as the place of occurrence of the external cause
CPT/HCPCS: 36415; 80048; 83735; 84100; 85025; 85610; 85730; 93005; 93010; C1713; J1100; J2250; J2270; J2272; J2405; J2704; J3010; J3490; J7050